=== PATIENT | male | born 1955 | race Caucasian/White ===

== ENCOUNTER 2024-06-18 18:06 | Inpatient (IN) ==
--- OUTSIDE RECORDS SUMMARY | 2024-06-18 18:12 | External Medical Summary | Summary of Care ---
Author Name Unknown Organization [facility] Address [address] [place] [address] Phone [phone] Care Team Providers Care Control Operator Name Role Phone Dennis Piper MD Primary Care Provider [phone] Reason for Visit * Reason Comments NEW PATIENT C/o rash on back, sh oulders, stomach, legs x few months. Has tried hydrocortisone, benadryl itch relief. Uses dial body wash. Uses tide detergent. * Evaluate & Treat - Unlimited Visits (Within 30 days (routine)) - Authorized Specialty Diagnoses / Procedures Referred By Renetta silveira Referred To Contact Dermatology Diagnoses Eczema, unspecified type Dennis Piper MD Phone: tel: fax: Referral ID Status Reason Start Date Expiration Date Visits Requested Visits Authorized [id number] Authorized Specialty Services Required [phone] Encounter Details Date Type Department Care Team (Late st Contact Info) Description 02/23/2024 1:30 PM EST Office Visit Dermatology [address] [address] Antonietta Macias PA-C [address] [place] [address] Rash and nonspecific skin eruption* Allergies Active Allergy Reactions Criticality Noted Date Comments Penicillins 02/03/2021 documented as of this encounter (statuses as of 02/23/2024) Medications Triamcinolone Acetonide 0.1 % External Cream (Aristocort) Apply to trunk and extremities twice daily 454 g 5 Active Cephalexin 500 MG Oral Capsule (Keflex) Take 1 Capsule by mouth in the morning and 1 Capsule before bedtime. 20 Capsule 5 Active Cetirizine HCl 10 MG Oral Tablet (ZyrTEC) Take 1 Tablet by mouth in the morning. For itch. 15 Tablet 5 Active documented as of this encounter (statuses as of 02/23/2024) Active Problems No known active problems documented as of this encounter (statuses as of 02/23/2024) Immunizations Name Administration Dates Next Due Pneumococcal Conjugate Vaccine, 20-valent (Prevn ar20) 10/15/2022 Pneumococcal Polysaccharide PPV23 (Pneumovax) TDAP (age 10 and older)(Boostrix) 02/03/2021 Varicella Zoster Vaccine (Adult) 04/15/2022,10/0 02/2021 documented as of this encounter Social History Tobacco Use Types Packs/Day Years Used Date Smoking Tobacco: Never Smokeless Tobacco: Never PHQ-2 Answer Date Recorded PHQ Adult Total Score 0 10/19/2023 Hunger Vital Sign Answer Date Recorded Within the past 12 months, y ou worried that your food would run out before you got the money to buy more. Never true 10/05/19 24 Within the past 12 months, t he food you bought just didn't last and you didn't have money to get more. Never true 10/05/2023 Childcare Answer Date Recorded Do you feel overwhelmed with taking care of a child, family member or friend? No 10/05/2023 Does your family need help f inding childcare? (Household - for ages 0-17 years) Not on file 10/05/2023 Clothing Answer Date Recorded Have you been unable to get clothing when it was really needed? No 10/05/2023 Is your family able to get c lothes or diapers when needed? (Household - for ages 0-17 years) Not on file 10/05/2023 Personal Safety Answer Date Recorded Do you feel unsafe or have concerns for your saf ety? No 10/05/2023 Do you have concerns for you r family's safety? (Household - for ages 0-17 years) Not on file 10/05/2023 Utilities Answer Date Recorded Do you have trouble paying y our heating, water, or electric bill? No 10/05/2023 Is your family able to pay t he heat, water, or electric bill? (Household - for ages 0-17 years) Not on file 10/05/2023 Does your family have access to good internet? (Household - for ages 0-17 years) Not on file 10/05/2023 Employment Status Answer Date Recorded Are you unemployed or without regular income? No 10/05/2023 Does the household have a [facility] source [facility] income? (Household - for ages 0-17 years) Not on file 10/05/2023 Social Connections Answer Date Recorded How often do you feel lonely or isolated from th ose around you? Never 10/05/2023 Financial Resource Strain Answer Date R ecorded Do you have any trouble payi ng for your medications, or do you think you might in the future? No 10/05/2023 Does your family have troubl e paying for medicine? (Household - for ages 0-17 years) Not on file 10/05/2023 Transportation Needs Answer Date Record ed Do you have trouble getting a ride to medical visits or work? (Adult - for ages 18 years and over) Not on file 10/05/2023 Does your family have a hard time getting a ride to doctors visits? (Household - for ages 0-17 years) Not on file 10/05/2023 Has lack of transportation k ept you from medical appointments, meetings, work, or from getting things needed for daily living? Check all that apply. No 10/05/2023 Do you (or your family) have trouble finding or paying for a ride (transportation)? (Household - for ages 0-17 years) Not on file 10/05/2023 Housing Stability Answer Date Recorded Do you currently live in a s helter or have no steady place to sleep at night? No 10/05/2023 Do you think you are at risk of becoming homeless? (Adult - for ages 18 years and over) Not on file 10/05/2023 Does your family worry about paying for your home or becoming homeless? (Household - for ages 0-17 years) Not on file 0 10/05/2023 Are you homeless or worried that you might be in the future? No 10/05/2023 Are you (or your family) bryan eless or worried that you might be in the future? (Household - for ages 0-17 years) Not on file Food Insecurity Answer Date Recorded Do you need food for this week? No 10/05/2023 Are you able to get enough f ood for your family? (Household - for ages 0-17 years) Not on file 10/05/2023 Does your family need food t his week? (Household - for ages 0-17 years) Not on file 10/05/2023 Do you always have enough fo od for your family? (Household - for ages 0-17 years) Not on file 10/05/2023 Sex and Gender Information Value Date Recorded Sex Assigned at Male 10/05/2023 4:21 PM EDT Legal Sex Male 10:32 AM EST Gender Identity Male 10/05/2023 4:21 PM EDT Sexual Orientation Straight 10/05/2023 4: 21 PM EDT documented as of this encounter Progress Notes * Antonietta Macias PA-C - 02/23/2024 1:16 PM EST Nursing Notes: Kaylin Macias LPN 02/23/24 1334 Signed Patient identified by name and date. Chief Complaint Patient presents with NEW PATIENT C/o rash on back, shoulders, stomach, legs x few months. Has tried hydrocortisone, benadryl itch relief. Uses dial body wash. Uses tide detergent. SUBJECTIVE: HPI: Adria Butler is a 68 year old male seen at the request of PCP for evaluation and treatment ofrash. Rash located on torso and legs x several months. Began on upper back Rash is very itchy. Keeps him up at night. Previous attempted tx includes benadryl itch relief with very minimal and temporary relief. Washes with dial body wash, Tide laundry detergent- no changes in products recently. No new medications. No recent illness. Hx of eczema, per pt. Biopsied approx 10 years ago- looked similar to current rash but not as severe at this episode. REVIEW OF SYSTEMS: See HPI- all other findings negative Constitutional: (-) fever, chills, sweats, weight loss Cardiovascular: (-) lower extremity edema Skin: (-) no rash or new or changing moles or skin lesions No past medical history on file. There is no problem list on file for this patient. SOCIAL HISTORY: Social History Tobacco Use Smoking status: Never Smokeless tobacco: Never Substance Use Topics Alcohol use: Not on file Vaping/E-Cigarette Use Vaping/E-Cigarette Substances Vaping/E-Cigarette Devices MEDICATIONS: No current outpatient medications on file. No current facility-administered medications for this visit. ALLERGIES: Penicillins Industrial Designer Documentation Patient offered systems tester and declined. OBJECTIVE: GEN: Healthy, alert, no distress, appears oriented, pleasant, and cooperative. PSYCH: Appropriate mood and affect, alert SKIN: Detailed exam of scalp, hair, face including lids and lips, ears, neck, chest, back, abdomen,buttocks, bilateral upper extremities and bilateral lower extremities including the nails and digits was completed and are within normal limits with the following exceptions: 1. [place]-shaped erythematous scaly and crusted plaques and papules on upper back, flanks, arms, thighs Excoriations diffusely throughout trunk and upper/lower ext ASSESSMENT/PLAN: 1. Dermatitis, favor nummular dermatitis with secondary staph r/o other Tangential biopsy of the lesion noted above to establish and confirm diagnosis. The procedure, risks, benefits, alternatives and expected outcomes were discussed with the patient and verbal consent was obtained. Patient identified, procedure verified, site identified and verified. Confirmed immediately prior to procedure. Area prepped with alcohol and anesthetized with 0.5% lidocaine with epinephrine at 1:200,000 concentration. Biopsy of lesion performed. 20% AlCl and bandaging applied. Specimen sent to pathology. Patient instructed in routine post-op care. - prescribed triamcinolone 0.1% cream 1lb jar BID to trunk and ext, zyrtec 10mg daily in AM, cephalexin 500mg BID x 10 days - discussed gentle skin care to include but not limited to lukewarm showers, moisturizing with thick cream immediately after showering, Dove soap Patient with today. Follow-up: PRN Photos taken, patient consented to photos. Applicable photos (if any) and chart reviewed by Dr. Reji Cronin The patient was encouraged to contact me with any further questions or concerns. Antonietta Macias PA-C 02/23/2024 1:17 PM documented in this encounter Nursing Notes * Kaylin Macias LPN - 02/23/2024 1:34 PM EST Patient identified by name and date. Chief Complaint Patient presents with NEW PATIENT C/o rash on back, shoulders, stomach, legs x few months. Has tried hydrocortisone, benadryl itch relief. Uses dial body wash. Uses tide detergent. documented in this encounter Plan of Treatment Upcoming Encounters Date Type Department Care Team (Late st Contact Info) Description 10/19/2024 8:20 AM EDT Office Visit [facility] [address] [place] [address] Dennis Piper MD [address] [place] [address] Pending Results Name Type Priority Associated Diagnoses Date /Time SURGICAL PATHOLOGY Pathology Routine Rash and nonspecific skin eruption 02/23/2024 1:56 PM EST Scheduled Procedures Name Priority Associated Diagnoses Date/Ti in COLONOSCOPY FLEXIBLE PROXIMAL DIAGNOSTIC Recall History of colon polyps Health Maintenance Due Date Last Done Comments Cologuard 1998 Fecal Occult Blood Test 1998 Sigmoidoscopy 1998 Adult Wellness Visit 08/03/2019 Zoster Vaccines (2 of 3) 06/10/2022 023, 11/15/2021 COVID-19 Vaccine ( - 2023-2 5 season) 2023 02/11/2023 Influenza Vaccine (FLU shot) (#1) 2023 Depression Screening 10/18/2024 10/19/2023 Lipid Panel 10/10/2028 10/11/2023, 10/05/2022, 03/06/2021 DTap/Tdap Vaccines (2 - Td o r Tdap) 02/03/2031 02/03/2021 Colonoscopy 06/04/2031 06/03/2021, 06/03/2021 Colorectal Cancer Screening 06/04/2031 Pneumococcal Vaccine: 50+ Years Completed 10/15/2022, 03/06/2021 HPV (Gardasil) Vaccine Aged Out No lo nger eligible based on patient's age to complete this topic Hepatitis B Vaccine Aged Out No longe r eligible based on patient's age to complete this topic Hepatitis C Screening Discontinued MENINGOCOCCAL (MENACTRA/MENVEO) Aged Out No longer eligible based on patient's age to complete this topic documented as of this encounter Medical Devices Not on filedocumented as of this encounter Procedures Procedure Name Priority Date/Time Associated Diagnosis Comments DERM EXAM - DERM (IMAGES ONLY, NO REPORT) Routine 02/23/2024 1:55 PM EST Rash and nonspecific skin eruption documented in this encounter Results * DERM EXAM - DERM (IMAGES ONLY, NO REPORT) (02/23/2024 1:55 PM EST) Narrative Scheduling, Silent - 02/23/2024 1:55 PM EST This is an imaging study not interpreted or resulted by a [facility] or [facility] contracted radiologist. Antonietta Macias PA-C RADIOLOGY ([facility]) Final Result documented in this encounter Visit Diagnoses Diagnosis Rash and nonspecific skin eruption- Primary Rash and other nonspecific skin eruption documented in this encounter Care Teams Control Operator Relationship Specialty Start Date End Date Dennis Piper MD PCP - General Family Medicine 02/03/21 documented as of this encounter
--- OUTSIDE RECORDS SUMMARY | 2024-06-18 18:12 | External Medical Summary | Summary of Care ---
Author Name Unknown Organization [facility] Address [address] [place] [address] Phone [phone] Care Team Providers Care Audio Visual Engineer Name Role Phone Dennis Piper MD Primary Care Provider [phone] Reason for Visit * Reason Onset Date Comments Test Results 02/29/2024 Encounter Details Date Type Department Care Team (Late st Contact Info) Description 02/29/2024 Telephone [address] [address] Services, Scheduling [address] [place] [address] Test Results Allergies Active Allergy Reactions Criticality Noted Date Comments Penicillins 02/03/2021 documented as of this encounter (statuses as of 03/09/2024) Medications Triamcinolone Acetonide 0.1 % External Cream [...] as of this encounter (statuses as of 03/09/2024) Active Problems No known active problems documented as of this encounter (statuses as of 03/09/2024) Immunizations Name Administration Dates Next Due Pneumococcal Conjugate Vaccine, 20-valent (Prevn ar20) 10/15/2022 Pneumococcal Polysaccharide PPV23 (Pneumovax) TDAP (age 10 and older)(Boostrix) 02/03/2021 Varicella Zoster Vaccine (Adult) 04/15/2022,1002/2021 documented as of this encounter Social History [...] No 10/05/2023 Does the household have a re gular source of income? (Household - for ages [...] PM EDT documented as of this encounter Miscellaneous Notes * Telephone Encounter - Aster Pike OSA - 02/29/2024 11:12 AM EST Pt returning your call, we tried the number you left twas not able to reach anyone. Please assist. Best number to call pt back is [phone] Robert aster documented in this encounter Plan of Treatment Upcoming Encounters Date Type Department Care Team (Late st Contact Info) Description 10/19/2024 8:20 AM EDT Office Visit [facility] Reilly [address] [phone] Dennis Piper MD [address] [address] Scheduled Procedures Name Priority Associated Diagnoses Date/Ti me COLONOSCOPY FLEXIBLE PROXIMAL DIAGNOSTIC Recall History of colon polyps Health Maintenance Due Date Last Done Comments Cologuard 1998 Fecal Occult Blood Test 1998 Sigmoidoscopy 1998 Adult Wellness Visit 08/03/2019 Zoster Vaccines (2 of 3) 06/10/2022 023, 11/15/2021 COVID-19 Vaccine (2 - 2023-2 5 season) 2023 02/11/2023 Influenza [...] Not on filedocumented as of this encounter Care Teams Audio Visual Engineer Relationship Specialty Start Date End Date Dennis Piepr MD PCP - General Family Medicine 02/03/21 documented as of this encounter
--- OUTSIDE RECORDS SUMMARY | 2024-06-18 18:12 | External Medical Summary | Summary of Care ---
Author Name Unknown Organization [facility] Address [address] [place] [address] Phone [phone] Care Team Providers Care Automatic Data Processing Planner Name Role Phone Dennis Piper MD Primary Care Provider [phone] Reason for Visit * Reason Comments NEW [...] Date Expiration Date Visits Requested Visits Authorized [id number] Authorized Specialty Services Required 4 [phone] Encounter Details Date Type Department Care Team (Late st Contact Info) Description 02/23/2024 1:30 PM EST Office Visit Dermatology [address] [address] Antonietta Macias PA-C [address] [place] [address] Rash and nonspecific skin eruption* Allergies Active [...] No 10/05/2023 Does the household have a [facility] source of income? (Household - for ages [...] as of this encounter Progress Notes * Reji Cronin MD - 02/23/2024 6:43 PM EST I have reviewed the charting notes and orders and associated images and agree with the assessment and plan of Antonietta Salgado PA-C . Reji Cronin MD., Dermatology [facility] [address] [place] [address] * Antonietta Macias PA-C - 02/23/2024 1:16 [...] facility-administered medications for this visit. ALLERGIES: Penicillins Newspaper Correspondent Documentation Patient offered computer system validation specialist and declined. OBJECTIVE: GEN: Healthy, alert, no distress, appears oriented, pleasant, and cooperative. PSYCH: Appropriate mood and affect, alert SKIN: Detailed exam of scalp, hair, face including lids and lips, ears, neck, chest, back, abdomen,buttocks, bilateral upper extremities and bilateral lower extremities including the nails and digits was completed and are within normal limits with the following exceptions: 1. [place]-shaped erythematous scaly and crusted plaques and papules [...] Description 10/19/2024 8:20 AM EDT [facility] [address] [phone] Dennis Piper MD [address] [address] Pending Results Name Type Priority Associated Diagnoses [...] interpreted or resulted by a [facility] or [facility] contracted radiologist. Antonietta Macias PA-C RADIOLOGY ([facility]) Final Result documented in this encounter Visit Diagnoses Diagnosis Rash and nonspecific skin eruption- Primary Rash and other nonspecific skin eruption documented in this encounter Care Teams Automatic Data Processing Planner Relationship Specialty Start Date End Date Dennis Piper MD PCP - General Family Medicine 02/03/21 documented as of this encounter
--- OUTSIDE RECORDS SUMMARY | 2024-06-18 18:12 | External Medical Summary | Summary of Care ---
Author Name Unknown Organization [facility] Address [address] [place] [address] Phone [phone] Care Team Providers Care Cereal Supervisor Name Role Phone Dennis Piper MD Primary Care Provider Reason for Visit * Reason Comments NEW [...] Date Expiration Date Visits Requested Visits Authorized [id number] Authorized Specialty Services Required 4 [phone] Encounter Details Date Type Department Care Team (Late st Contact Info) Description 02/23/2024 1:30 PM EST Office Visit Dermatology [address] [address] Antonietta Macias PA-C [address] [place] [address] Rash and nonspecific skin eruption* Allergies Active Allergy Reactions Criticality Noted Date Comments Penicillins 02/03/2021 documented as of this encounter (statuses as of 02/29/2024) Medications Triamcinolone Acetonide 0.1 % External Cream [...] as of this encounter (statuses as of 02/29/2024) Active Problems No known active problems documented as of this encounter (statuses as of 02/29/2024) Immunizations Name Administration Dates Next Due Pneumococcal [...] No 10/05/2023 Does the household have a [facility] source of income? (Household - for ages [...] Salgado PA-C . Reji Cronin MD., Dermatology [facility] [address] [place] [address] * Antonietta Macias PA-C - 02/23/2024 1:16 [...] facility-administered medications for this visit. ALLERGIES: Penicillins Renal Nurse Documentation Patient offered furnace mechanic helper and declined. OBJECTIVE: GEN: Healthy, alert, no distress, appears oriented, pleasant, and cooperative. PSYCH: Appropriate mood and affect, alert SKIN: Detailed exam of scalp, hair, face including lids and lips, ears, neck, chest, back, abdomen,buttocks, bilateral upper extremities and bilateral lower extremities including the nails and digits was completed and are within normal limits with the following exceptions: 1. Turton-shaped erythematous scaly and crusted plaques and papules [...] Uses tide detergent. documented in this encounter Miscellaneous Notes * Result Encounter Note - Antonietta Macias PA-C - 02/29/2024 8:25 AM EST A. Skin, right posterior shoulder, shave: Spongiotic dermatitis with eosinophils. (See comment) Comment: GMS and Gram stains are negative for fungal and bacterial elements, respectively. The histologic findings are not entirely specific, but may represent a contact dermatitis, reaction to drug/medicine/other ingested substance, atopic/intrinsic dermatitis, or an ID reaction. A few eosinophilsare noted along the dermal-epidermal junction; if there is clinical concern for an immunobullous process, an additional biopsy submitted for direct immunofluorescence studies may be warranted. Left message for pt to return call to discuss results and f/u with treatment documented in this encounter Plan of Treatment Upcoming Encounters Date Type Department Care Team (Late st Contact Info) Description 10/19/2024 8:20 AM EDT Office Visit [facility] Hubert Reilly [address] [address] Dennis Piper MD [address] [phone] Scheduled Procedures Name Priority Associated Diagnoses Date/Ti [...] Procedure Name Priority Date/Time Associated Diagnosis Comments SURGICAL PATHOLOGY Routine 02/23/2024 1: 56 PM EST Rash and nonspecific skin eruption DERM EXAM - DERM (IMAGES ONLY, NO REPORT) Routine 02/23/2024 1:55 PM EST Rash and nonspecific skin eruption documented in this encounter Results * SURGICAL PATHOLOGY (02/23/2024 1:56 PM EST) Final Diagnosis A. Skin, right posterior shoulder, shave: Spongiotic dermatitis with eosinophils. (See comment) Comment: GMS and Gram stains are negative for fungal and bacterial elements, respectively. The histologic findings are not entirely specific, but may represent a contact dermatitis, reaction to drug/medicine/other ingested substance, atopic/intrinsic dermatitis, or an ID reaction. A few eosinophils are noted along the dermal-epidermal junction; if there is clinical concern for an immunobullous process, an additional biopsy submitted for direct immunofluorescence studies may be warranted. 02/28/2024 2:35 PM EST LABORATORY C Clinical History See Order Comments 02/28/2024 2:35 PM EST LABORATORY C Order Comments A. 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 Skin. Received in formalin with a container labeled with "Adria Butler", "[id number]", "1955" and " right posterior shoulder". Received is a skin shave measuring 1.1 x 1.0 cm. The skin surface is mcginnis-pink to yellow variegated with a rough slightly scaly appearance throughout. Underlying tissue is inked blue. The specimen serially sectioned into 5 and entirely submitted with 2 pieces each in cassettes A1 and A2 in 1 piece in cassettes A3. Gross By: TITI 02/28/2024 2:35 PM EST LABORATORY C Microscopic Description Sections show a shave biopsy of skin with marked epidermal spongiosis, overlying serum crust with collections of neutrophils, and focal erosion. Within the dermis, there is a superficial perivascular lymphocytic infiltrate with numerous admixed eosinophils. GMS and Gram stains are negative for fungal and bacterial organisms, respectively. 02/28/2024 2:35 PM EST LABORATORY [facility] Sign Out Location Pathologist sign out performed at [facility] ([facility] [place] [address]. 02/28/2024 2:35 PM EST LABORATORY [facility] Photographic images and diagrams represent mackenzie findings in this case; they are not intended to replace a complete review of the final diagnostic report. The following statement applies to Flow Cytometry, Histology, In situ Hybridization Assays and Molecular Genetics. This test was developed and performed at [facility] and its performance characteristics determined by [facility] [employer]. It has not been cleared or approved by the U.S. Food and Drug Administration. The FDA has determined that such clearance or approval is not necessary. This test is used for clinical purposes. It should not be regarded as investigational or for research. Special stains, including histochemical stains, and studies using immunologic and MIRELA methodology (where applicable) are performed with appropriate positive and negative control reactions. 02/28/2024 2:35 PM EST LABORATORY [facility] Tissue Skin structure / Unknown 02/23/2024 1:56 PM EST 02/23/2024 1:56 PM EST Comment:A. Cowan crusted and scaly plaques on upper back, upper ext, favor nummular eczema with secondary bacterial infection r/o other Antonietta Macias PA-C LAB PATHOLOGY ORDER DENIZ Final Result LABORATORY [facility] [address] [place] [address] * DERM EXAM - DERM (IMAGES ONLY, NO REPORT) (02/23/2024 1:55 PM EST) Narrative Scheduling, Silent - 02/23/2024 1:55 PM EST This is an imaging study not interpreted or resulted [facility] a [facility] radiologist. Antonietta Macias PA-C RADIOLOGY (RAD [facility]) Final Result documented in this encounter Visit Diagnoses Diagnosis Rash and nonspecific skin eruption- Primary Rash and other nonspecific skin eruption documented in this encounter Care Teams Cereal Supervisor Relationship Specialty Start Date End Date Dennis Piper MD PCP - General Family Medicine 02/03/21 documented as of this encounter
--- OUTSIDE RECORDS SUMMARY | 2024-06-18 18:12 | External Medical Summary | Summary of Care ---
Author Name Unknown Organization [facility] Address [address] [place] [address] Phone [phone] Care Team Providers Care Cold Rolling Coordinator Name Role Phone Dennis Piper MD Primary Care Provider [phone] Reason for Referral * Evaluate & Treat - Unlimited Visits (Within 30 days (routine)) - Authorized Specialty Diagnoses / Procedures Referred By Renetta silveira Referred To Contact Dermatology Diagnoses Eczema, unspecified type Dennis Piper MD [address] [place] [address] Phone: tel: fax: Referral ID Status Reason Start Date Expiration Date Visits Requested Visits Authorized [id number] Authorized Specialty Services Required 4 [phone] Question Answer Referral Priority Within 30 days (routine) Where should this appointment be scheduled? [facility] Are you referring the patient for Mohs Surgery and have a current positive skin cancer biopsy result? No What is the reason for the patient referral? Rash/Skin Check/Eval of Lesion or Mole Comments Patient has a similar rash that he had 10 years ago and thinks it's eczema or a for of it. Reason for Visit * Reason Onset Date Comments Referral 12/23/2023 Encounter Details Date Type Department Care Team ([facility] st Contact Info) Description 12/23/2023 Telephone [facility] [address] [facility] [place] [address] Dennis Piper MD [address] [place] [facility] [place] [address] Referral Allergies Active Allergy Reactions Criticality Noted Date Comments Penicillins 02/03/2021 documented as of this encounter (statuses as of 01/05/2024) Medications No known medicationsdocumented as of this encounter (statuses as of 01/05/2024) Immunizations Name Administration Dates Next Due Pneumococcal Conjugate Vaccine, 20-valent (Prevn ar20) 10/15/2022 Pneumococcal Polysaccharide PPV23 (Pneumovax) TDAP (age 10 and older)(Boostrix) 02/03/2021 Varicella Zoster Vaccine (Adult) 04/15/2022,100 02/2021 documented as of this encounter Social [...] encounter Miscellaneous Notes * Telephone Encounter - Mary Rehman LPN - 01/05/2024 11:37 AM EST Is scheduled with derm 05/11/24 Please see if pt would like to be seen sooner in clinic * Telephone Encounter - Dennis Piper MD - 01/03/2024 5:44 PM EST Notify Pt: I did complete referral but likely to take many months to get a derm apt. I would suggest he be seen in this office to evaluate and treat. * Telephone Encounter - Maggy Dukes OSA - 12/23/2023 2:40 PM EST Has the patient been seen for this problem? (Y/N)?: N If No, an appt needs to be scheduled before a referral will be placed (exception: proceed with referral request if referral request is for a yearly routine appointment with speciality) Patient Name: Adria Butler Patient Primary care provider: Dennis Piper MD Does this need to be an insurance referral (Y/N)?: Y If Yes, does the insurance referral need to be placed into the [employer] system? Name of preferred specialist: Dr. Whitt, or another in [place] Type of specialist: Clinical Training Specialist [facility] of specialist: [facility] Phone #: [phone] Specialist's Fax #: n/a Reason for visit: Patient has a similar rash that he had 10 years ago and thinks it's eczema or a for of it. Date of visit: n/a documented in this encounter Plan of Treatment Upcoming Encounters Date Type Department Care Team (Late st Contact Info) Description 05/11/2024 2:00 PM EDT Office Visit Dermatology, [address] [address] Alice Colmenares PA-Opal [address] [place] [address] [address] [address] 10/19/2024 8:20 AM EDT Office Visit Family [address] [address] Dennis Piper MD [address] [place] [address] Scheduled Procedures Name Priority Associated Diagnoses Date/Ti me COLONOSCOPY FLEXIBLE PROXIMAL DIAGNOSTIC Recall History of colon polyps Scheduled Referrals Name Type Priority Associated Diagnoses Orde r Schedule DERMATOLOGY REFERRAL OP Referral Within 30 days (routine) Eczema, unspecified type Ordered: 01/03/2024 Health Maintenance Due Date Last Done Comments [...] 06/03/2021 Colorectal Cancer Screening 06/04/2031 Pneumococcal Vaccine: 65+ Years Completed 10/15/2022, 03/06/2021 HPV (Gardasil) Vaccine [...] Not on filedocumented as of this encounter Visit Diagnoses Diagnosis Eczema, unspecified type- Primary documented in this encounter Care Teams Cold Rolling Coordinator Relationship Specialty Start Date End Date Dennis Piper MD [address] [place] [address] PCP - General Family Medicine 02/03/21 documented as of this encounter
--- OUTSIDE RECORDS SUMMARY | 2024-06-18 18:12 | External Medical Summary | Summary of Care ---
Author Name Unknown Organization [facility] Address [address] [place] [address] Phone [phone] Care Team Providers Care Filter Washer Name Role Phone Dennis Piper MD Primary Care Provider [phone] Encounter Details Date Type Department Care Team (Latest Contact Info) Description 02/23/2024 1:55 PM EST - 02/23/2024 11:59 PM EST Hospital Encounter Radiology Film File [address] [place] [address] Arrived Discharge Disposition: Home - Self Care Allergies Active Allergy Reactions Criticality Noted Date Comments Penicillins 02/03/2021 documented as of this encounter (statuses as of 02/24/2024) Medications Triamcinolone Acetonide 0.1 % External Cream [...] as of this encounter (statuses as of 02/24/2024) Active Problems No known active problems documented as of this encounter (statuses as of 02/24/2024) Immunizations Name Administration Dates Next Due Pneumococcal [...] PM EDT documented as of this encounter Plan of Treatment Upcoming Encounters Date Type Department Care Team (Late st Contact Info) Description 10/19/2024 8:20 AM EDT Office Visit [facility] Hubert Reilly [address] [address] Dennis Piper MD [address] [address] Scheduled Procedures Name Priority Associated Diagnoses Date/Ti [...] interpreted or resulted by a [facility] or [facility] contracted radiologist. us Antonietta Macias PA-C RADIOLOGY (RAD [facility]) Final Result documented in this encounter Care Teams Filter Washer Relationship Specialty Start Date End Date Dennis Piper MD PCP - General Family Medicine 02/03/21 documented as of this encounter
--- OUTSIDE RECORDS SUMMARY | 2024-06-18 18:12 | External Medical Summary | Summary of Care ---
Author Name Unknown Organization [facility] Address [address] [place] [address] Phone [phone] Care Team Providers Care Vise Hand Name Role Phone Dennis Piper MD Primary Care Provider [phone] Reason for Referral * Evaluate & Treat - Unlimited Visits (Within 30 days (routine)) - Authorized Specialty Diagnoses / Procedures Referred By Renetta silveira Referred To Contact Dermatology Diagnoses Eczema, unspecified type Dennis Piper MD [address] [place] [address] Phone: tel: fax: Referral ID Status Reason Start Date Expiration Date Visits Requested Visits Authorized [id number] Authorized Specialty Services Required 4 [phone] [...] Encounter Details Date Type Department Care Team ([facility] st Contact Info) Description 12/23/2023 Telephone [facility] [address] [place] [facility] [place] [address] Dennis Piper MD [address] [place] [address] Referral Allergies Active Allergy Reactions Criticality Noted Date Comments Penicillins 02/03/2021 documented as of this encounter (statuses as of 01/03/2024) Medications No known medicationsdocumented as of this encounter (statuses as of 01/03/2024) Immunizations Name Administration Dates Next Due Pneumococcal [...] encounter Miscellaneous Notes * Telephone Encounter - Dennis Piper MD [...] referral need to be placed into the [employer] system? Name of preferred specialist: Dr. Whitt, or another in [place] Type of specialist: Cinetechnician [facility] Phone #: [phone] Specialist's Fax #: n/a Reason for visit: Patient has a similar rash that he had 10 years ago and thinks it's eczema or a for of it. Date of visit: n/a documented in this encounter Plan of Treatment Upcoming Encounters Date Type Department Care Team (Late st Contact Info) Description 10/19/2024 8:20 AM EDT Office Visit [address] [address] Dennis Piper MD [address] [place] [address] Scheduled Procedures Name Priority Associated Diagnoses Date/Ti [...] Primary documented in this encounter Care Teams Vise Hand Relationship Specialty Start Date End Date Dennis Piper MD [address] [place] [address] PCP - General Family Medicine 02/03/21 documented as of this encounter
--- NOTE | 2024-06-18 18:29 | Emergency Department Note ---
ED DC CONDITION Conditon at Discharge Condition at Discharge: Critical Impression & Plan Aphasia, Alcohol dependence, Stroke-like symptoms ED Provider Note NAME: JIAN RIVAS AGE: 68 SEX: M : 1955 ARRIVES VIA: Walk-In INFORMANT: Patient ED PROVIDER(S): Gregory Benton MD CHIEF COMPLAINT: Stroke-like symptoms PLAN: Disposition: Admit MEDICAL DECISION MAKING: The patient is a 68-year-old gentleman with a past medical history of daily alcohol use who presents to the emergency department via walk-in and accompanied by his for evaluation of acute onset of headache and trouble speaking and following commands that occurred around 1730 today when the patient was watching TV. Patient's reports that she was out of town over the weekend, but has no indication that the patient had more alcohol than usual or abstain for any reason where he may be in withdrawal. She also adds that he has a history of falling but he did not mention any falls to her and did not complain of any pain until he complained of a headache this evening. The patient is not on anticoagulation nor does he take a daily aspirin. On presentation to triage the patient is no acute distress, afebrile blood pressure in the 190s/100s and vital signs otherwise stable. Stroke alert was activated given onset of stroke symptoms and taken directly to CT. Patient's case was discussed with Dr. Tinoco, [facility] [place]y. On my examination following CT imaging, the patient exhibits expressive aphasia with some dysarthria but also some difficulty following commands and exhibits poor attention with some restlessness. There is no focal extremity weakness but some limb ataxia bilaterally NIHSS 7. EKG without overt acute ischemia. CXR negative for acute cardiopulmonary process per my personal preliminary review/interpretation. WBC, H/H and platelets with normal limits. Chemistry without metabolic acidosis. Electrolytes LFTs unremarkable. Total bili 1.2, nonspecific LFTs otherwise normal. TSH within normal limits. UA without evidence of infection. Medical alcohol was undetectable and so given report of regular heavy alcohol use a component of alcohol withdrawal is considered. CT of the head and CTA of the head and neck were completed CT of the head and did not show evidence of ICH, ischemia or severe narrowing occlusion of large vessels. Appreciate telestroke consultation recommendations following evaluation via telestroke monitor. Given the patient's acute symptoms within the TNK window and inability to completely exclude stroke patient's was consented for TNK and she agreed. However, CBC had yet to result at the time of this decision and given the patient's history of regular heavy alcohol use we agreed to await results to ensure appropriate platelet count. The patient's blood pressure continued to be elevated despite IV fluid hydration, IV APAP, thiamine as well as IV Ativan. Patient was treated with labetalol x 2 and subsequently blood pressure was within range to initiate TNK. Additional management of blood pressure administered with labetalol and initiation of nicardipine drip. Case was discussed with Dr. Ho, [facility] who will evaluate the patient for admission. Case also reviewed with Elizabeth Cox, PAC with Dr. Mcintosh, ICU customer development representative. Further management per ICU and hospitalist service. Triage Nursing notes reviewed and agree them. Prior/external medical records reviewed Vital Signs: reviewed Differential diagnosis: Infection, dehydration, metabolic abnormality, hypo/hyperglycemia, electrolyte disturbance, anemia, hypoxia, cardiac sources, intracerebral event, toxicologic, neurologic, as well as other pathologies. ER treatment provided: See below. Diagnostics interpreted by me: ECG: Normal sinus rhythm, 76 bpm, no ectopy, right bundle branch block, no overt ST elevation or depression, QTc 460, QRS 120. Cardiac Monitoring: An order for continuous cardiac monitoring was placed and demonstrated Normal sinus rhythm, 76 bpm, no ectopy. Laboratory studies: See below Imaging studies: See below Consultation(s): Dr. Tinoco, [facility] [place]y. Dr. Ho, [facility]. Elizabeth Cox, PAC with Dr. Mcintosh, ICU customer development representative. HPI: Per MDM. ROS: See above HPI for pertinent positives & negatives. A total of 10 systems reviewed and were otherwise negative. VITALS:See Below PHYSICAL EXAMINATION: GENERAL: Awake, alert, restless-appearing, in no distress HENT: Normocephalic, atraumatic. Oropharynx with dry mucous membranes and otherwise unremarkable. EYES: Normal conjunctiva. Sclera non-icteric. EOMI. PEARRL. No overt nystamgus. NECK: Supple. No nuchal rigidity. FROM. No JVD. RESPIRATORY: Clear to auscultation. CARDIAC: Regular rate, normal rhythm. Extremities warm and well perfused. Pulses equal. ABDOMEN: Soft, non-distended. No tenderness to palpation. No rebound or guarding. No masses. MUSCULOSKELETAL: Chest examination reveals no tenderness. The back is symmetrical on inspection without obvious abnormality. There is no CVA tenderness to palpation. No joint edema. LOWER EXTREMITIES: Calves are equal size bilaterally and non-tender. No edema. No discoloration. NEURO: Expressive aphasia with some dysarthria but also some difficulty following commands and exhibits poor attention with some restlessness. There is no focal extremity weakness but some limb ataxia bilaterally NIHSS 7. SKIN: No rash or jaundice noted. ED COURSE: Discussion occurred with patient/family: We discussed the risks of IV thrombolytic therapy including a 5-7% risk of possible significant hemorrhage which can be fatal as well as about a 1% risk of angioedema. We also noted that IV thrombolytic therapy provides about a 30-40% probability of improved functional status and lower disability at 90 days than if not treated with thrombolytic. After discussion regarding risks and benefits as well as the inclusion and exclusion criteria, the patient's then consented for the patient to receive IV thrombolytic therapy. Critical Care: I have personally spent greater than 75 minutes of critical care time in the direct management of this patient. This includes bedside care, interpretation of diagnostic studies, and testing, discussion with consultants, patient, and family members, and other required patient management activities. This 75 minutes is in excess of all separately billable procedures. Gregory Benton MD Thrombolytics MDM Did the patient receive IV thrombolytics?: Yes Was there any delay in administration?: Yes Reason(s) for Delay: TNK administration awaited results of CBC to ensure appropriate platelet count in the setting of alcoholism and no prior lab results available for comparison. Past Med/Surg History Problem List (Updated 06/19/24 @ 00:14 by Gregory Benton MD) Stroke-like symptoms (Acute) Aphasia (Acute) Alcohol dependence (Acute) Ischemic stroke Social History Smoking Status: Unknown if ever smoked Hx Alcohol Use: Yes Alcohol type: hard liquor Hx Substance Use: No Preferred Language: Mohawk Communication Ability: Effective Cloth Mender Required: No Beliefs That Will Affect Care: None Current Living Situation: Spouse Other Information That Helps Us Care for You: No Feels Safe at Home: Yes Safety Concerns: Feels Safe At This Time Assistive Devices: Glasses Allergies Allergies Allergy/AdvReac Type Severity Reaction Status Date / Time Penicillins Allergy Unknown Verified 06/18/24 19:39 Home Meds Home Medications Medication Instructions Recorded Confirmed cetirizine 10 mg tablet 10 mg PO DAILY PRN Itching 06/18/24 06/18/24 triamcinolone acetonide 0.1 % 1 applic topical BID PRN Rash 06/18/24 06/18/24 topical cream Results & Data (ED) Vital Signs Vital Signs - 24 hr 06/18/24 18:12 06/18/24 18:35 06/18/24 18:36 Temperature 36.6 C Temperature Source Temporal Artery Scan Pulse Rate 74 85 Pulse Rate [Apical] Pulse Rate from SpO2 Sensor Respiratory Rate 18 Respiratory Effort / Characteristics Respiratory Depth Normal Respiratory Pattern Blood Pressure 194/100 H 213/119 H Blood Pressure [Right Arm] Blood Pressure Mean 131 159 Blood Pressure Mean [Right Arm] Pulse Oximetry 97 Oxygen Delivery Method Room Air Sepsis Recent Fever Within 48 Hours No Sepsis New/Unexplained Change in Mental Status No Sepsis Action Taken by Nursing No Action Required 06/18/24 18:55 06/18/24 18:55 06/18/24 19:00 Temperature Temperature Source Pulse Rate 76 Pulse Rate [Apical] Pulse Rate from SpO2 Sensor Respiratory Rate Respiratory Effort / Characteristics Respiratory Depth Respiratory Pattern Blood Pressure 195/115 H 195/115 H 194/113 H Blood Pressure [Right Arm] Blood Pressure Mean 130 140 Blood Pressure Mean [Right Arm] Pulse Oximetry Oxygen Delivery Method Sepsis Recent Fever Within 48 Hours Sepsis New/Unexplained Change in Mental Status Sepsis Action Taken by Nursing 06/18/24 19:05 06/18/24 19:06 06/18/24 19:10 Temperature Temperature Source Pulse Rate 83 Pulse Rate [Apical] Pulse Rate from SpO2 Sensor 82 Respiratory Rate 15 Respiratory Effort / Characteristics Respiratory Depth Respiratory Pattern Blood Pressure 169/114 H 185/124 H Blood Pressure [Right Arm] Blood Pressure Mean 119 155 Blood Pressure Mean [Right Arm] Pulse Oximetry 100 Oxygen Delivery Method Room Air Sepsis Recent Fever Within 48 Hours Sepsis New/Unexplained Change in Mental Status Sepsis Action Taken by Nursing 06/18/24 19:10 06/18/24 19:10 06/18/24 19:12 Temperature Temperature Source Pulse Rate 83 Pulse Rate [Apical] Pulse Rate from SpO2 Sensor 84 Respiratory Rate 23 Respiratory Effort / Characteristics Respiratory Depth Respiratory Pattern Blood Pressure Blood Pressure [Right Arm] Blood Pressure Mean Blood Pressure Mean [Right Arm] Pulse Oximetry 100 100 97 Oxygen Delivery Method Room Air Room Air Room Air Sepsis Recent Fever Within 48 Hours Sepsis New/Unexplained Change in Mental Status Sepsis Action Taken by Nursing 06/18/24 19:15 06/18/24 19:17 06/18/24 19:17 Temperature Temperature Source Pulse Rate 87 87 Pulse Rate [Apical] Pulse Rate from SpO2 Sensor 87 Respiratory Rate 18 20 Respiratory Effort / Characteristics Respiratory Depth Respiratory Pattern Blood Pressure 182/96 H 182/96 H Blood Pressure [Right Arm] Blood Pressure Mean 117 117 Blood Pressure Mean [Right Arm] Pulse Oximetry 92 93 Oxygen Delivery Method Room Air Room Air Sepsis Recent Fever Within 48 Hours Sepsis New/Unexplained Change in Mental Status Sepsis Action Taken by Nursing 06/18/24 19:20 06/18/24 19:26 06/18/24 19:28 Temperature Temperature Source Pulse Rate 84 85 Pulse Rate [Apical] Pulse Rate from SpO2 Sensor Respiratory Rate 18 Respiratory Effort / Characteristics Respiratory Depth Respiratory Pattern Blood Pressure 170/91 H 175/86 H 175/86 H Blood Pressure [Right Arm] Blood Pressure Mean 134 115 Blood Pressure Mean [Right Arm] Pulse Oximetry 98 Oxygen Delivery Method Room Air Sepsis Recent Fever Within 48 Hours Sepsis New/Unexplained Change in Mental Status Sepsis Action Taken by Nursing 06/18/24 19:36 06/18/24 19:40 06/18/24 19:41 Temperature Temperature Source Pulse Rate 80 83 78 Pulse Rate [Apical] Pulse Rate from SpO2 Sensor Respiratory Rate 16 14 Respiratory Effort / Characteristics Respiratory Depth Respiratory Pattern Blood Pressure 176/119 H 172/110 H 172/110 H Blood Pressure [Right Arm] Blood Pressure Mean 152 119 Blood Pressure Mean [Right Arm] Pulse Oximetry 95 93 Oxygen Delivery Method Room Air Room Air Sepsis Recent Fever Within 48 Hours Sepsis New/Unexplained Change in Mental Status Sepsis Action Taken by Nursing 06/18/24 19:45 06/18/24 19:50 06/18/24 19:56 Temperature Temperature Source Pulse Rate 78 79 Pulse Rate [Apical] Pulse Rate from SpO2 Sensor Respiratory Rate 12 Respiratory Effort / Characteristics Respiratory Depth Respiratory Pattern Blood Pressure 164/96 H 152/93 H 181/90 H Blood Pressure [Right Arm] Blood Pressure Mean 117 109 Blood Pressure Mean [Right Arm] Pulse Oximetry 95 Oxygen Delivery Method Room Air Sepsis Recent Fever Within 48 Hours Sepsis New/Unexplained Change in Mental Status Sepsis Action Taken by Nursing 06/18/24 20:00 06/18/24 20:08 06/18/24 20:23 Temperature 36.8 C 36.8 C Temperature Source Oral Oral Pulse Rate 77 Pulse Rate [Apical] 75 74 Pulse Rate from SpO2 Sensor 79 Respiratory Rate 20 16 18 Respiratory Effort / Characteristics Non-Labored Spontaneous Non-Labored Spontaneous Respiratory Depth Normal Normal Respiratory Pattern Regular Regular Blood Pressure 114/77 Blood Pressure [Right Arm] 153/58 H 166/108 H Blood Pressure Mean 89 Blood Pressure Mean [Right Arm] 89 127 Pulse Oximetry 93 94 96 Oxygen Delivery Method Room Air Room Air Room Air Sepsis Recent Fever Within 48 Hours Sepsis New/Unexplained Change in Mental Status Sepsis Action Taken by Nursing 06/18/24 20:31 06/18/24 20:38 06/18/24 20:45 Temperature 36.8 C Temperature Source Oral Pulse Rate 73 75 Pulse Rate [Apical] 71 Pulse Rate from SpO2 Sensor Respiratory Rate 22 Respiratory Effort / Characteristics Non-Labored Spontaneous Respiratory Depth Normal Respiratory Pattern Regular Blood Pressure 166/108 H 169/92 H Blood Pressure [Right Arm] 162/89 H Blood Pressure Mean Blood Pressure Mean [Right Arm] 113 Pulse Oximetry 93 Oxygen Delivery Method Room Air Sepsis Recent Fever Within 48 Hours Sepsis New/Unexplained Change in Mental Status Sepsis Action Taken by Nursing Laboratory Data Attestation: I reviewed the patient's lab results. 06/18/24 19:07 06/18/24 19:07 Lab Results 06/18/24 06/18/24 06/18/24 Range/Units 19:05 19:07 19:08 WBC 5.61 (4.8-10.8) K/ul RBC 4.23 L (4.70-6.10) M/uL Hgb 14.3 (14.0-18.0) g/dl POC Hgb 14.3 (14.0-18.0) g/dl Hct 40.5 L (42.0-52.0) % POC Hct 42 (42-52) % MCV 95.7 (80.0-100.0) fL MCH 33.8 (25.0-34.0) pg MCHC 35.3 (32.0-36.0) g/dL RDW Std Deviation 46.9 H (36.4-46.3) fL RDW Coeff of [place]ba 13.2 (11.5-14.5) % Plt Count 175 (130-400) K/uL MPV 9.5 (9.4-12.4) fL PT 10.9 (9.0-12.0) Seconds INR 1.0 (0.9-1.1) APTT 30 (21-31) Seconds PTT Ratio 1.1 POC Sodium 136 (135-144) mmol/L Sodium 134 L (136-145) mmol/L POC Potassium 4.6 (3.3-5.0) mmol/L Potassium 4.6 (3.5-5.1) mmol/L POC Chloride 100 L (101-112) mmol/L Chloride 101 (98-107) mmol/L Carbon Dioxide 25 (21-32) mmol/L POC Total CO2 22 L (24-31) mmol/L Anion Gap 8 (3-11) POC Anion Gap 19.0 (16-25) mmol/L POC BUN 13 (7-18) mg/dl BUN 13 (6-23) mg/dl Creatinine 0.97 (0.6-1.4) mg/dl POC Creatinine 1.0 (0.6-1.3) mg/dl Est Cr Clr Drug Dosing Not Reportable eGFR 83.98 BUN/Creatinine Ratio 13.4 (10-20) Glucose 85 (70-99(Fasting)) mg/dl POC Glucose 88 (70-99) mg/dl POC Glucose (other) 88 (70-99) mg/dl Calcium 9.8 (8.6-10.3) mg/dl POC Ioniz Calcium Jesús 1.13 (1.12-1.32) mmol/l Magnesium 1.8 (1.7-2.4) mg/dl Total Bilirubin 1.2 H (0.2-1.0) mg/dl AST 33 (13-39) U/L ALT 24 (7-52) U/L Alkaline Phosphatase 52 (34-104) U/L Total Protein 7.0 (6.0-8.3) gm/dl Albumin 4.2 (3.4-5.0) gm/dl Globulin 2.8 (2.5-4.0) gm/dl Albumin/Globulin Ratio 1.5 (0.9-2) TSH 1.972 (0.300-4.500) uIu/ml Ethyl Alcohol mg/dL < 10.0 (<10.0) mg/dl Hepatitis C Ab Screen (Negative) 06/18/24 Range/Units 19:49 WBC (4.8-10.8) K/ul RBC (4.70-6.10) M/uL Hgb (14.0-18.0) g/dl POC Hgb (14.0-18.0) g/dl Hct (42.0-52.0) % POC Hct (42-52) % MCV (80.0-100.0) fL MCH (25.0-34.0) pg MCHC (32.0-36.0) g/dL RDW Std Deviation (36.4-46.3) fL RDW Coeff of Elba (11.5-14.5) % Plt Count (130-400) K/uL MPV (9.4-12.4) fL PT (9.0-12.0) Seconds INR (0.9-1.1) APTT (21-31) Seconds PTT Ratio POC Sodium (135-144) mmol/L Sodium (136-145) mmol/L POC Potassium (3.3-5.0) mmol/L Potassium (3.5-5.1) mmol/L POC Chloride (101-112) mmol/L Chloride (98-107) mmol/L Carbon Dioxide (21-32) mmol/L POC Total CO2 (24-31) mmol/L Anion Gap (3-11) POC Anion Gap (16-25) mmol/L POC BUN (7-18) mg/dl BUN (6-23) mg/dl Creatinine (0.6-1.4) mg/dl POC Creatinine (0.6-1.3) mg/dl Est Cr Clr Drug Dosing eGFR BUN/Creatinine Ratio (10-20) Glucose (70-99(Fasting)) mg/dl POC Glucose (70-99) mg/dl POC Glucose (other) (70-99) mg/dl Calcium (8.6-10.3) mg/dl POC Ioniz Calcium Jesús (1.12-1.32) mmol/l Magnesium (1.7-2.4) mg/dl Total Bilirubin (0.2-1.0) mg/dl AST (13-39) U/L ALT (7-52) U/L Alkaline Phosphatase (34-104) U/L Total Protein (6.0-8.3) gm/dl Albumin (3.4-5.0) gm/dl Globulin (2.5-4.0) gm/dl Albumin/Globulin Ratio (0.9-2) TSH (0.300-4.500) uIu/ml Ethyl Alcohol mg/dL (<10.0) mg/dl Hepatitis C Ab Screen Negative (Negative) Administered Medications Nicardipine HCl 25 mg/ Sodium (Chloride) 250 mls @ 0 mls/hr IV .Q0M BALDEV; Protocol Stop: 07/18/24 18:59 Last Titration: 06/18/24 21:15 Dose: 0 mg/hr, 0 mls/hr Documented By: Admin: 06/18/24 20:36 Dose: 5 mg/hr, 50 mls/hr Documented By: DENTON Co-signed By: CONCHIS Lactated Ringer's (Lr) 1,000 mls @ 75 mls/hr IV .[id number] BALDEV Stop: 06/21/24 22:59 Last Admin: 06/18/24 23:14 Dose: 75 mls/hr Documented By: SHAYNE Lorazepam (Lorazepam 2 Mg/1 Ml Vial) 2 mg IV UD PRN; Protocol PRN Reason: EtOH Withdrawal AWSS Score 8,9 Stop: 07/18/24 21:14 Last Admin: 06/18/24 23:34 Dose: 2 mg Documented By: SHAYNE Miscellaneous (Icu Protocol For Hyperglycemia) 1 each N/A ACHS [facility] Stop: 06/20/24 22:13 Last Admin: 06/18/24 23:15 Dose: Not Given Documented By: SHAYNE Discontinued Medications Sodium Chloride (Nss) 1,000 mls @ 999 mls/hr IV .Q1H1M ONE Stop: 06/18/24 19:37 Last Infusion: 06/18/24 20:21 Dose: Infused Documented By: Admin: 06/18/24 18:47 Dose: 999 mls/hr Documented By: BLAIR Thiamine HCl 500 mg/ Sodium (Chloride) 55 mls @ 210 mls/hr IV NOW STA Stop: 06/18/24 19:00 Last Infusion: 06/18/24 19:27 Dose: Infused Documented By: Admin: 06/18/24 19:10 Dose: 210 mls/hr Documented By: BLAIR Acetaminophen (Ofirmev) 1,000 mg in 100 mls @ 400 mls/hr IV NOW STA Stop: 06/18/24 19:07 Last Infusion: 06/18/24 19:27 Dose: Infused Documented By: Admin: 06/18/24 19:11 Dose: 400 mls/hr Documented By: BLAIR Tenecteplase 19 mg/ Syringe 3.8 mls @ 45.6 mls/min IV NOW ONE; Protocol Stop: 06/18/24 19:21 Last Admin: 06/18/24 19:52 Dose: 45.6 mls/min Documented By: DENTON Co-signed By: DORA Magnesium Sulfate/Dextrose (Magnesium Sulfate / D5w) 1 gm in 100 mls @ 50 mls/hr IV ONE ONE Stop: 06/18/24 22:44 Last Infusion: 06/18/24 23:13 Dose: Infused Documented By: Admin: 06/18/24 20:52 Dose: 50 mls/hr Documented By: DENTON Dextrose (D5w) 1,000 mls @ 40 mls/hr IV .Q24H STA Stop: 06/19/24 21:24 Last Infusion: 06/18/24 23:13 Dose: Infused Documented By: Admin: 06/18/24 22:45 Dose: 40 mls/hr Documented By: SHAYNE Ioversol (Optiray 320 125ml) 118 ml IV ONCE ONE Stop: 06/18/24 18:34 Last Admin: 06/18/24 18:34 Dose: 118 ml Documented By: SHARON Labetalol HCl (Labetalol Hcl Iv 5 Mg/Ml 20ml) Confirm Administered Dose 5 mg IV .STK-MED ONE Stop: 06/18/24 18:44 Last Admin: 06/18/24 18:55 Dose: 10 mg Documented By: BLAIR Labetalol HCl (Labetalol Hcl Iv 5 Mg/Ml 20ml) 10 mg IV NOW STA Stop: 06/18/24 18:56 Last Admin: 06/18/24 19:10 Dose: Not Given Documented By: BALIR Labetalol HCl (Labetalol Hcl Iv 5 Mg/Ml 20ml) 10 mg IV NOW STA Stop: 06/18/24 19:13 Last Admin: 06/18/24 19:41 Dose: 10 mg Documented By: DENTON Labetalol HCl (Labetalol Hcl Iv 5 Mg/Ml 20ml) 10 mg IV NOW STA Stop: 06/18/24 19:59 Last Admin: 06/18/24 20:31 Dose: 10 mg Documented By: DENTON Lorazepam (Lorazepam 2 Mg/1 Ml Vial) Confirm Administered Dose 2 mg .ROUTE .STK- MED ONE Stop: 06/18/24 19:06 Last Admin: 06/18/24 19:10 Dose: Not Given Documented By: BLAIR Lorazepam (Lorazepam 2 Mg/1 Ml Vial) 2 mg IV NOW STA Stop: 06/18/24 19:05 Last Admin: 06/18/24 19:07 Dose: 2 mg Documented By: BLAIR Lorazepam (Lorazepam 2 Mg/1 Ml Vial) 2 mg IV NOW STA Stop: 06/18/24 19:38 Last Admin: 06/18/24 19:42 Dose: 2 mg Documented By: DENTON Lorazepam (Lorazepam 2 Mg/1 Ml Vial) 0.25 mg IV NOW STA Stop: 06/18/24 21:14 Last Admin: 06/18/24 21:36 Dose: 0.25 mg Documented By: DENTON Miscellaneous (Stat Iv Infusion Titration Per Protocol) 1 each N/A NOW STA; Protocol Stop: 06/18/24 18:48 Last Admin: 06/18/24 23:14 Dose: Not Given Documented By: SHAYNE Miscellaneous (Stat Iv/Im) 1 each N/A NOW STA Stop: 06/18/24 19:11 Last Admin: 06/18/24 23:15 Dose: Not Given Documented By: SHAYNE Miscellaneous Information (Patient's Allergy Info Needs Entered) 1 each N/A Q30M STA Stop: 06/18/24 19:14 Last Admin: 06/18/24 20:19 Dose: Not Given Documented By: DENTON Sodium Chloride (Sodium Chloride 0.9% 10ml Flush) 20 ml IV NOW STA Stop: 06/18/24 19:11 Last Admin: 06/18/24 19:53 Dose: 20 ml Documented By: DENTON Imaging Data Radiologist's Impression: Chest X-Ray 06/18/24 18:17 EXAM: Portable AP chest radiograph TECHNIQUE: AP portable radiograph of the chest was obtained. INDICATION: Shortness of breath Comparison: None FINDINGS: LINES and TUBES: None CARDIOVASCULAR: Cardiac silhouette is mildly enlarged in size. LUNGS/PLEURA: Mild pulmonary vascular congestion. No focal consolidation identified. No significant pleural fluid. No discernible pneumothorax. OSSEOUS/OTHER: No displaced acute osseous process identified. IMPRESSION: Mild congestive changes of the cardiovascular system. Electronically signed by Jose Leigh 06-18-2024 8:[address] 06/18/24 18:17 EXAMINATION: Head CT without CLINICAL HISTORY: Stroke alert, confusion, word finding difficulty, gait instability PRIORS: None TECHNIQUE: Contiguous axial images were obtained through the head without the use of intravenous contrast. Sagittal and coronal reformations are supplied. FINDINGS: Mild parenchymal volume loss noted.. [place]-white differentiation is preserved. No edema or midline shift. No intra-axial or extra-axial hemorrhage. Ventricles are normal in size and configuration. Brainstem and cerebellum have a normal appearance. Calvarium unremarkable. Paranasal sinuses and mastoid air cells are well-pneumatized. Globes are intact. No retrobulbar abnormality. IMPRESSION: No CT evidence of an acute intracranial abnormality. Negative findings discussed with Dr. Benton in the emergency department at 6:35 PM EST on18 Jun 2024. Electronically signed by Kenya Daley 06-18-2024 6:36 PM Head CTA 06/18/24 18:26 EXAM: CTA head with CLINICAL HISTORY: Stroke alert, confusion, word finding difficulty, gait instability TECHNIQUE: Contiguous CTA axial images were obtained through the head after the administration of intravenous contrast. Sagittal and coronal reformations are supplied. PRIORS: Noncontrast head CT today FINDINGS: The vertebral arteries form the basilar artery at the skull base. [place] of [place] is patent. No thrombus or hemodynamically significant stenosis. No aneurysmal dilatation or mayfield aneurysm. No enhancing mass in the brain. IMPRESSION: No CTA evidence of an acute vascular abnormality. Negative head CT discussed with Dr. Benton in the emergency department at 6:35 PM EST on 18 Jun 2024. Electronically signed by Kenya Daley 06-18-2024 6:45 PM Neck CTA 06/18/24 18:26 EXAM: CT angio neck with con CLINICAL HISTORY: Stroke alert confusion, word finding difficulty, gait instability TECHNIQUE: Contiguous CTA axial images were obtained through the neck with the administration of intravenous contrast. Sagittal and coronal reformations are supplied. MIPS are supplied. COMPARISON: Noncontrast head CT today FINDINGS: A left-sided aortic arch is present with appropriate takeoff of the great vessels. The left vertebral artery arises directly from the aortic arch, variant anatomy. RIGHT: The common, internal and external carotid arteries are patent. Mild atherosclerotic plaque present in the right carotid bulb with no hemodynamically significant stenosis. The internal carotid artery enters the petrous portion of the skull base normally. No stenosis or thrombus. LEFT: The common, internal and external carotid arteries are patent. Mild atherosclerotic plaque present in the left carotid bulb with no hemodynamically significant stenosis. The internal carotid artery enters the petrous portion of the skull base normally. No stenosis or thrombus. No intimal flap or evidence of dissection in thecarotid or vertebral arteries.. The vertebral arteries are patent throughout their course with no significant atherosclerotic disease, stenosis or thrombus. Vertebral arteries are Co dominant. No sinus disease in the [id number]. Dental amalgam creates significant beam hardening artifact diminishing image quality lung apices are unremarkable. No enhancing mass at the skull base. IMPRESSION: 1. No CTA evidence ofhemodynamically significant stenosis or thrombus within the neck. Negative head CT results discussed with Dr. Benton in the emergency department at 6:35 PM EST on Electronically signed by Kenya Daley 06-18-2024 6:51 PM Discharge Plan Visit Data Chief Complaint: Stroke Alert Stated Complaint: CONFUSION, HEADACHE, NAUSEA ED Provider: Gregory Benton Discharge Problem: Aphasia, Alcohol dependence, Stroke-like symptoms Patient Disposition: Admitted As Inpatient Condition: Critical Discharge Instructions Interventions: ED Discharge Assessment Last Done: 06/18/24 21:49 Discharge Problem: Alcohol dependence Qualifiers: Substance use status: unspecified alcohol-induced disorder Qualified Code(s): F 10.29 - Alcohol dependence with unspecified alcohol-induced disorder
[2024-06-18] MEDS: OPTIRAY 320 125ml IV ONE (18:34)
--- NOTE | 2024-06-18 18:37 | CT Scan Report ---
EXAMINATION: Head CT without CLINICAL HISTORY: Stroke alert, confusion, word finding difficulty, gait instability PRIORS: None TECHNIQUE: Contiguous axial images were obtained through the head without the use of intravenous contrast. Sagittal and coronal reformations are supplied. FINDINGS: Mild parenchymal volume loss noted.. [place]-white differentiation is preserved. No edema or midline shift. No intra-axial or extra-axial hemorrhage. Ventricles are normal in size and configuration. Brainstem and cerebellum have a normal appearance. Calvarium unremarkable. Paranasal sinuses and mastoid air cells are well-pneumatized. Globes are intact. No retrobulbar abnormality. IMPRESSION: No CT evidence of an acute intracranial abnormality. Negative findings discussed with Dr. Benton in the emergency department at 6:35 PM EST June 2024. Electronically signed by Kenya Daley 06-18-2024 6:36 PM
--- NOTE | 2024-06-18 18:45 | CT Scan Report ---
EXAM: CTA head with CLINICAL HISTORY: Stroke alert, confusion, word finding difficulty, gait instability TECHNIQUE: Contiguous CTA axial images were obtained through the head after the administration of intravenous contrast. Sagittal and coronal reformations are supplied. PRIORS: Noncontrast head CT today FINDINGS: The vertebral arteries form the basilar artery at the skull base. [place] is patent. No thrombus or hemodynamically significant stenosis. No aneurysmal dilatation or mayfield aneurysm. No enhancing mass in the brain. IMPRESSION: No CTA evidence of an acute vascular abnormality. Negative head CT discussed with Dr. Benton in the emergency department at 6:35 PM EST on 18 Jun 2024. Electronically signed by Kenya Daley 06-18-2024 6:45 PM
[2024-06-18] MEDS: SODIUM CHLORIDE 0.9% 1,000 ML IV ONE (18:47)
--- NOTE | 2024-06-18 18:51 | CT Scan Report ---
EXAM: CT angio neck with con CLINICAL HISTORY: Stroke alert confusion, word finding difficulty, gait instability TECHNIQUE: Contiguous CTA axial images were obtained through the neck with the administration of intravenous contrast. Sagittal and coronal reformations are supplied. MIPS are supplied. COMPARISON: Noncontrast head CT today FINDINGS: A left-sided aortic arch is present with appropriate takeoff of the great vessels. The left vertebral artery arises directly from the aortic arch, variant anatomy. RIGHT: The common, internal and external carotid arteries are patent. Mild atherosclerotic plaque present in the right carotid bulb with no hemodynamically significant stenosis. The internal carotid artery enters the petrous portion of the skull base normally. No stenosis or thrombus. LEFT: The common, internal and external carotid arteries are patent. Mild atherosclerotic plaque present in the left carotid bulb with no hemodynamically significant stenosis. The internal carotid artery enters the petrous portion of the skull base normally. No stenosis or thrombus. No intimal flap or evidence of dissection in thecarotid or vertebral arteries.. The vertebral arteries are patent throughout their course with no significant atherosclerotic disease, stenosis or thrombus. Vertebral arteries are Co dominant. No sinus disease in the [id number]. Dental amalgam creates significant beam hardening artifact diminishing image quality lung apices are unremarkable. No enhancing mass at the skull base. IMPRESSION: 1. No CTA evidence ofhemodynamically significant stenosis or thrombus within the neck. Negative head CT results discussed with Dr. Benton in the emergency department at 6:35 PM EST on Electronically signed by Kenya Daley 06-18-2024 6:51 PM
[2024-06-18] MEDS: LABETALOL HCL IV 5 MG/ML 20ML IV ONE (18:55)
[2024-06-18] MEDS: LORazepam 2 MG/1 ML VIAL IV STA ×3 (19:07→21:36)
[2024-06-18] MEDS: THIAMINE HCL 500 MG in SODIUM CHLORIDE 0.9% 50 ML IV STA (19:10)
[2024-06-18] MEDS: LORazepam 2 MG/1 ML VIAL ONE (19:10)
[2024-06-18] MEDS: LABETALOL HCL IV 5 MG/ML 20ML IV STA ×3 (19:10→20:31)
[2024-06-18] MEDS: ACETAMINOPHEN 1,000 MG/100 ML VIAL IV STA (19:11)
[2024-06-18] MEDS ORDERED: No Aspirin within 24hrs of THROMBOLYTIC-Stroke PO SCH (19:15)
[2024-06-18 19:17] LABS: Hematocrit (blood only) 40.5 % (42.0-52.0); Hemoglobin 14.3 g/dl (14.0-18.0); Mean Corpuscular Hemoglobin 33.8 pg (25.0-34.0); Mean Corpuscular Hgb Conc 35.3 g/dL (32.0-36.0); Mean Corpuscular Volume 95.7 fL (80.0-100.0); Mean Platelet Volume 9.5 fL (9.4-12.4); Platelet Count 175 K/uL (130-400); RDW Coefficient of Variation 13.2 % (11.5-14.5); RDW Standard Deviation 46.9 fL (36.4-46.3); Red Blood Count 4.23 M/uL (4.70-6.10); White Blood Count 5.61 K/ul (4.8-10.8)
[2024-06-18 19:20] LABS: iSTAT Hemoglobin 14.3 g/dl (14.0-18.0); iSTAT Ionized Calcium 1.13 mmol/l (1.12-1.32); iSTAT Potassium 4.6 mmol/L (3.3-5.0)
[2024-06-18 19:31] LABS: Albumin Level 4.2 gm/dl (3.4-5.0); Anion Gap 8 (3-11); Bilirubin,Total 1.2 mg/dl (0.2-1.0); Calcium 9.8 mg/dl (8.6-10.3); Carbon Dioxide 25 mmol/L (21-32); Chloride 101 mmol/L (98-107); Magnesium 1.8 mg/dl (1.7-2.4); Potassium 4.6 mmol/L (3.5-5.1); Sodium 134 mmol/L (136-145)
[2024-06-18 19:37] LABS: Alanine Aminotransferase 24 U/L (7-52); Albumin Globulin Ratio 1.5 (0.9-2); Alkaline Phosphatase 52 U/L (34-104); Aspartate Aminotransferase 33 U/L (13-39); BUN Creatinine Ratio 13.4 (10-20); Blood Urea Nitrogen 13 mg/dl (6-23); Globulin 2.8 gm/dl (2.5-4.0); Glucose 85 mg/dl (70-99(Fasting))
[2024-06-18 19:43] LABS: Partial Thromboplastin Ratio 1.1; Partial Thromboplastin Time 30 Seconds (21-31); Prothrombin Time 10.9 Seconds (9.0-12.0)
[2024-06-18] MEDS: TENECTEPLASE 19 MG in SYRINGE 0 ML IV ONE (19:52)
[2024-06-18] MEDS: SODIUM CHLORIDE 0.9% 10ML FLUSH IV STA (19:53)
--- NOTE | 2024-06-18 20:02 | XRay Report ---
EXAM: Portable AP chest radiograph TECHNIQUE: AP portable radiograph of the chest was obtained. INDICATION: Shortness of breath Comparison: None FINDINGS: LINES and TUBES: None CARDIOVASCULAR: Cardiac silhouette is mildly enlarged in size. LUNGS/PLEURA: Mild pulmonary vascular congestion. No focal consolidation identified. No significant pleural fluid. No discernible pneumothorax. OSSEOUS/OTHER: No displaced acute osseous process identified. IMPRESSION: Mild congestive changes of the cardiovascular system. Electronically signed by Jose Leigh 06-18-2024 8:02 PM
[2024-06-18] MEDS: Patient's ALLERGY Info needs ENTERED STA (20:19)
[2024-06-18] MEDS: niCARdipine 25 MG in SODIUM CHLORIDE 0.9% 240 ML IV SCH (20:36)
--- NOTE | 2024-06-18 20:48 | History & Physical Report ---
Date of Service June 18, 2024 Assessment & Plan (1) Aphasia: Plan: Sudden onset aphasia associated with headache and involuntary shaking movements Acute ischemic CVA Possible alcohol withdrawal status post TNK Patient continues to be aphasic and confused post thrombolytic administration. Hypertensive crisis secondary to above Pulmonary congestion on CXR, possible CHF Hyperlipidemia, patient refused statin Rx recommendation from PCP on last outpatient visit Admit to ICU post TNK administration Neurochecks Continue nicardipine infusion MRI brain, TTE for additional stroke workup Update lipid profile Statin Rx in a.m. Neurology consult Re: Sudden onset aphasia JEFFERSON S, DT precautions Cautious IVF administration given pulmonary congestion on CXR, await TTE DVT prophylaxis. SCDs post thrombolytic Rx Full code Patient requesting updates providers. Yeni Butler, contact #[phone]. Text document was generated using [employer] voice recognition software. It may contain grammatical or spelling errors. Kindly contact undersigned for clarification of any documentation item in question. History of Present Illness Chief Complaint: Aphasia, confusion, shaking Primary Care Provider: Dr. Piper History obtained from patient's family and records. Unable to obtain history from patient secondary to disorientation/aphasia Medical history significant for hyperlipidemia, alcohol abuse. Patient had sudden onset aphasia this afternoon. Preceded by achy headache symptoms. Patient suddenly started shaking. No prior episodes. Patient seemed okay when he helped with her bags after returned home from an out-of-town conference today as per family account. SBP 190s upon arrival at the ER. Stroke alert called upon arrival at the ER. Patient received TNK following [facility] stroke specialist recommendations. IV nicardipine infusion initiated at the ER. 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 Allergies Allergy/AdvReac Type Severity Reaction Status Date / Time Penicillins Allergy Unknown Verified 06/18/24 19:39 Home Medications Medication Instructions Recorded Confirmed Type cetirizine 10 mg tablet 10 mg PO DAILY PRN Itching 06/18/24 06/18/24 History triamcinolone acetonide 0.1 % 1 applic topical BID PRN Rash 06/18/24 06/18/24 History topical cream Past Med/Surg History Problem List (Updated 06/18/24 @ 23:44 by Charles Ho MD) Aphasia Alcohol dependence Ischemic stroke Social History Smoking Status: Unknown if ever smoked Hx Alcohol Use: Yes Alcohol type: hard liquor Hx Substance Use: No Preferred Language: Senegalese Communication Ability: Effective Door Repairman Required: No Beliefs That Will Affect Care: None Current Living Situation: Spouse Other Information That Helps Us Care for You: No Feels Safe at Home: Yes Safety Concerns: Feels Safe At This Time Assistive Devices: Glasses Review of Systems Review of Systems: Could not be reliably obtained secondary to aphasia/confusion Physical Exam Physical Exam: GENERAL: Aphasic, tremulous, no respiratory distress SKIN: Normal color, warm HEENT: [place] palpebral conjunctivae, no ptosis, dry buccal mucosa NECK : Supple, no tenderness CHEST : CTA, no tenderness HEART : RRR, no obvious murmurs ABDOMEN: Some distention, nontender EXTREMITIES : No LE swelling/tenderness, palpable pulses, no other conspicuous deformities noted NEUROLOGIC : Aphasic, no facial asymmetry, tremulous, gait and stance not assessed Results & Data Results & Data Vital Signs (Past 12 Hours) Vital Signs Temp Pulse Pulse Resp BP BP Pulse Ox 06/18/24 20:45 75 169/92 H 06/18/24 20:38 36.8 C 71 22 162/89 H 93 06/18/24 20:31 73 166/108 H 06/18/24 20:23 36.8 C 74 18 166/108 H 96 06/18/24 20:08 36.8 C 75 16 153/58 H 94 06/18/24 20:00 77 20 114/77 93 06/18/24 19:56 79 12 181/90 H 95 06/18/24 19:50 78 152/93 H 06/18/24 19:45 164/96 H 06/18/24 19:41 78 172/110 H 06/18/24 19:40 83 14 172/110 H 93 06/18/24 19:36 80 16 176/119 H 95 06/18/24 19:28 85 175/86 H 06/18/24 19:26 175/86 H 06/18/24 19:20 84 18 170/91 H 98 06/18/24 19:17 87 20 182/96 H 93 06/18/24 19:17 182/96 H 06/18/24 19:15 87 18 92 06/18/24 19:12 83 23 97 06/18/24 19:10 100 06/18/24 19:10 100 06/18/24 19:10 185/124 H 06/18/24 19:06 83 15 100 06/18/24 19:05 169/114 H 06/18/24 19:00 194/113 H 06/18/24 18:55 195/115 H 06/18/24 18:55 76 195/115 H 06/18/24 18:36 85 06/18/24 18:35 213/119 H 06/18/24 18:12 36.6 C 74 18 194/100 H 97 O2 Del Method 06/18/24 20:45 06/18/24 20:38 Room Air 06/18/24 20:31 06/18/24 20:23 Room Air 06/18/24 20:08 Room Air 06/18/24 20:00 Room Air 06/18/24 19:56 Room Air 06/18/24 19:50 06/18/24 19:45 06/18/24 19:41 06/18/24 19:40 Room Air 06/18/24 19:36 Room Air 06/18/24 19:28 06/18/24 19:26 06/18/24 19:20 Room Air 06/18/24 19:17 Room Air 06/18/24 19:17 06/18/24 19:15 Room Air 06/18/24 19:12 Room Air 06/18/24 19:10 Room Air 06/18/24 19:10 Room Air 06/18/24 19:10 06/18/24 19:06 Room Air 06/18/24 19:05 06/18/24 19:00 06/18/24 18:55 06/18/24 18:55 06/18/24 18:36 06/18/24 18:35 06/18/24 18:12 Room Air Laboratory Results Laboratory Results WBC 5.61 K/ul (4.8-10.8) 06/18/24 19:07 RBC 4.23 M/uL (4.70-6.10) L 06/18/24 19:07 Hgb 14.3 g/dl (14.0-18.0) 06/18/24 19:07 POC Hgb 14.3 g/dl (14.0-18.0) 06/18/24 19:08 Hct 40.5 % (42.0-52.0) L 06/18/24 19:07 POC Hct 42 % (42-52) 06/18/24 19:08 MCV 95.7 fL (80.0-100.0) 06/18/24 19:07 MCH 33.8 pg (25.0-34.0) 06/18/24 19:07 MCHC 35.3 g/dL (32.0-36.0) 06/18/24 19:07 RDW Std Deviation 46.9 fL (36.4-46.3) H 06/18/24 19:07 RDW Coeff of [place] 13.2 % (11.5-14.5) 06/18/24 19:07 Plt Count 175 K/uL (130-400) 06/18/24 19:07 MPV 9.5 fL (9.4-12.4) 06/18/24 19:07 PT 10.9 Seconds (9.0-12.0) 06/18/24 19:07 INR 1.0 (0.9-1.1) 06/18/24 19:07 APTT 30 Seconds (21-31) 06/18/24 19:07 PTT Ratio 1.1 06/18/24 19:07 POC Sodium 136 mmol/L (135-144) 06/18/24 19:08 Sodium 134 mmol/L (136-145) L 06/18/24 19:07 POC Potassium 4.6 mmol/L (3.3-5.0) 06/18/24 19:08 Potassium 4.6 mmol/L (3.5-5.1) 06/18/24 19:07 POC Chloride 100 mmol/L (101-112) L 06/18/24 19:08 Chloride 101 mmol/L (98-107) 06/18/24 19:07 Carbon Dioxide 25 mmol/L (21-32) 06/18/24 19:07 POC Total CO2 22 mmol/L (24-31) L 06/18/24 19:08 Anion Gap 8 (3-11) 06/18/24 19:07 POC Anion Gap 19.0 mmol/L (16-25) 06/18/24 19:08 POC BUN 13 mg/dl (7-18) 06/18/24 19:08 BUN 13 mg/dl (6-23) 06/18/24 19:07 Creatinine 0.97 mg/dl (0.6-1.4) 06/18/24 19:07 POC Creatinine 1.0 mg/dl (0.6-1.3) 06/18/24 19:08 Est Cr Clr Drug Dosing Not Reportable 06/18/24 19:07 eGFR 83.98 06/18/24 19:07 BUN/Creatinine Ratio 13.4 (10-20) 06/18/24 19:07 Glucose 85 mg/dl (70-99(Fasting)) 06/18/24 19:07 POC Glucose 88 mg/dl (70-99) 06/18/24 19:05 POC Glucose (other) 88 mg/dl (70-99) 06/18/24 19:08 Calcium 9.8 mg/dl (8.6-10.3) 06/18/24 19:07 POC Ioniz Calcium Jesús 1.13 mmol/l (1.12-1.32) 06/18/24 19:08 Magnesium 1.8 mg/dl (1.7-2.4) 06/18/24 19:07 Total Bilirubin 1.2 mg/dl (0.2-1.0) H 06/18/24 19:07 AST 33 U/L (13-39) 06/18/24 19:07 ALT 24 U/L (7-52) 06/18/24 19:07 Alkaline Phosphatase 52 U/L (34-104) 06/18/24 19:07 Total Protein 7.0 gm/dl (6.0-8.3) 06/18/24 19:07 Albumin 4.2 gm/dl (3.4-5.0) 06/18/24 19:07 Globulin 2.8 gm/dl (2.5-4.0) 06/18/24 19:07 Albumin/Globulin Ratio 1.5 (0.9-2) 06/18/24 19:07 Ethyl Alcohol mg/dL < 10.0 mg/dl (<10.0) 06/18/24 19:07 Impressions Chest X-Ray 06/18/24 18:17 EXAM: Portable AP chest radiograph TECHNIQUE: AP portable radiograph of the chest was obtained. INDICATION: Shortness of breath Comparison: None FINDINGS: LINES and TUBES: None CARDIOVASCULAR: Cardiac silhouette is mildly enlarged in size. LUNGS/PLEURA: Mild pulmonary vascular congestion. No focal consolidation identified. No significant pleural fluid. No discernible pneumothorax. OSSEOUS/OTHER: No displaced acute osseous process identified. IMPRESSION: Mild congestive changes of the cardiovascular system. Electronically signed by Jose Leigh 06-18-2024 8:[address] 06/18/24 18:17 EXAMINATION: Head CT without CLINICAL HISTORY: Stroke alert, confusion, word finding difficulty, gait instability PRIORS: None TECHNIQUE: Contiguous axial images were obtained through the head without the use of intravenous contrast. Sagittal and coronal reformations are supplied. FINDINGS: Mild parenchymal volume loss noted.. [place]-white differentiation is preserved. No edema or midline shift. No intra-axial or extra-axial hemorrhage. Ventricles are normal in size and configuration. Brainstem and cerebellum have a normal appearance. Calvarium unremarkable. Paranasal sinuses and mastoid air cells are well-pneumatized. Globes are intact. No retrobulbar abnormality. IMPRESSION: No CT evidence of an acute intracranial abnormality. Negative findings discussed with Dr. Benton in the emergency department at 6:35 PM EST on18 Jun 2024. Electronically signed by Kenya Daley 06-18-2024 6:36 PM Head CTA 06/18/24 18:26 EXAM: CTA head with CLINICAL HISTORY: Stroke alert, confusion, word finding difficulty, gait instability TECHNIQUE: Contiguous CTA axial images were obtained through the head after the administration of intravenous contrast. Sagittal and coronal reformations are supplied. PRIORS: Noncontrast head CT today FINDINGS: The vertebral arteries form the basilar artery at the skull base. [place] of [place] is patent. No thrombus or hemodynamically significant stenosis. No aneurysmal dilatation or mayfield aneurysm. No enhancing mass in the brain. IMPRESSION: No CTA evidence of an acute vascular abnormality. Negative head CT discussed with Dr. Benton in the emergency department at 6:35 PM EST on 18 Jun 2024. Electronically signed by Kenya Daley 06-18-2024 6:45 PM Neck CTA 06/18/24 18:26 EXAM: CT angio neck with con CLINICAL HISTORY: Stroke alert confusion, word finding difficulty, gait instability TECHNIQUE: Contiguous CTA axial images were obtained through the neck with the administration of intravenous contrast. Sagittal and coronal reformations are supplied. MIPS are supplied. COMPARISON: Noncontrast head CT today FINDINGS: A left-sided aortic arch is present with appropriate takeoff of the great vessels. The left vertebral artery arises directly from the aortic arch, variant anatomy. RIGHT: The common, internal and external carotid arteries are patent. Mild atherosclerotic plaque present in the right carotid bulb with no hemodynamically significant stenosis. The internal carotid artery enters the petrous portion of the skull base normally. No stenosis or thrombus. LEFT: The common, internal and external carotid arteries are patent. Mild atherosclerotic plaque present in the left carotid bulb with no hemodynamically significant stenosis. The internal carotid artery enters the petrous portion of the skull base normally. No stenosis or thrombus. No intimal flap or evidence of dissection in thecarotid or vertebral arteries.. The vertebral arteries are patent throughout their course with no significant atherosclerotic disease, stenosis or thrombus. Vertebral arteries are Co dominant. No sinus disease in the [id number]. Dental amalgam creates significant beam hardening artifact diminishing image quality lung apices are unremarkable. No enhancing mass at the skull base. IMPRESSION: 1. No CTA evidence ofhemodynamically significant stenosis or thrombus within the neck. Negative head CT results discussed with Dr. Benton in the emergency department at 6:35 PM EST on Electronically signed by Kenya Daley 06-18-2024 6:51 PM Diagnostic Findings EKG as per my interpretation :Rate 75, NSR, normal axis, RBBB, T wave abnormalities inferior leads
[2024-06-18] MEDS: MAGNESIUM SULFATE / D5W 1 GM/100 ML BAG IV ONE (20:52)
[2024-06-18] MEDS ORDERED: PROMETHAZINE 6.25 MG/50.25 ML BAG IV PRN (21:15)
[2024-06-18] MEDS ORDERED: Ativan IV Alcohol Withdrawal--Active Protocol IV PRN (21:15)
[2024-06-18] MEDS ORDERED: ACETAMINOPHEN 1,000 MG/100 ML VIAL IV PRN (21:15)
[2024-06-18] MEDS ORDERED: PHARMACIST DISCHARGE MED REC CONSULT PRN (21:17)
[2024-06-18 21:34] LABS: Thyroid Stimulating Hormone 1.972 uIu/ml (0.300-4.500)
[2024-06-18] MEDS ORDERED: TRIAMCINOLONE ACET 0.1% CR 15 GM TUBE TOP PRN (22:14)
--- NOTE | 2024-06-18 22:37 | Critical Care Consultation ---
Date of Consultation June 18, 2024 Assessment & Plan (1) Ischemic stroke: (2) Alcohol dependence: Plan Reason Critically Ill: 1. Ischemic CVA s/p TNK 2. Alcohol dependence with possible withdrawal Neuro - [facility] ICU: unable to be assessed RASS GOAL 0 CTH at 1953 on 06/19/2024 or sooner for neurologic change MRI Brain ordered A1c, Lipid panel AWSS protocol, will need to ensure we are not treating stroke symptoms with Ativan, RN to notify provider prior to Ativan administration Low clinical suspicion for seizure Thiamine, MVI, folic acid as ordered. Unable to formally r/o Wernicke's Encephalopathy APAP PRN pain/fever Cardiac - Admit EKG NSR with RBBB, no baseline comparison available Wean nicardipine for SBP goal < 180mmHg TTE with bubble study pending Respiratory - HOB 30-45 with aspiration precautions SpO2 goal > 92% IS/Flutter as clinically feasible GI - Diet: Strict NPO pending nursing dysphagia screen Consider formal swallow study SUP: N/A Bowel regimen: Held pending PO intake No ascites on exam RENAL/LYTES - Replete electrolytes as indicated Law for accurate I/Os, removal per protocol Gentle mIVF while NPO Maintain net even to net negative ENDO - BG 140-180 per SCCM guidelines ISS if needed while inpatient TSH WNL HEME - S/p TNK ID - No acute concerns Trend WBC and fever curve LINES/TUBES/DRAINS - PIV x2 Law (Day #1) DVT PROPHYLAXIS - Contraindicated I have personally spent 35 minutes of critical care time in the direct management of this patient. This is a life/limb threatening event. This includes time spent evaluating patient, direct bedside care, chart review, placing orders, interpretation of diagnostic studies, discussion with consultants, patient, and family members, as well as other required patient management activities. This time is exclusive of all separately billable procedures, and teaching time and separate from and in addition to any other critical care service time. Thank you for allowing us to participate in the care of this patient. Please refer to my attending physician's documentation for any further recommendations. History of Present Illness Reason for Consultation: S/p TNK Requesting Physician: Chetan Attending Physician: Valentin Mcdonough DO History of Present Illness Mr. Adria Butler is a 68YOM with a history of ETOH dependence and eczema who presented to [facility] [place] ED this evening as a stroke alert due to acute onset headache, dysarthria, gait instability, and confusion. LKW 1730. Patient was hypertensive to 190/100mmHg on arrival to ED. Initial NIHSS []. He was taken emergently to CT. CTH was negative for bleed. Underwent CTA H/N which did not show LVO. He received 20mg total Labetalol with improvement in hemodynamics. Decision made with [facility] Tele-Neurologist to administer TNKase. This was given at 1953. Received 1L NSS as well as 40mg total Ativan and 500mg IV Thiamine. Remainder of work-up thus far showing mildly elevated TBili, negative ETOH, TSH WNL. CXR with mild congestive changes. He was started on nicardipine for blood pressure control. Admitted to ICU for continuation of care. Patient was seen on arrival to ICU 111. He awakens to voice, agitated at times, attempting to pull at medical equipment. Moving all extremities spontaneously. PERRL. No nystagmus. did arrive to bedside and was able to recognize her, follow commands, speak in full sentence sensibly. Nods head yes and no as well. This is a significant improvement from prior per . Full ROS unable to be obtained, but patient told his headache was resolved. Allergies Allergy/AdvReac Type Severity Reaction Status Date / Time Penicillins Allergy Unknown Verified 06/18/24 19:39 Home Medications Medication Instructions Recorded Confirmed Type cetirizine 10 mg tablet 10 mg PO DAILY PRN Itching 06/18/24 06/18/24 History triamcinolone acetonide 0.1 % 1 applic topical BID PRN Rash 06/18/24 06/18/24 History topical cream Patient History Social History Smoking Status: Unknown if ever smoked Hx Alcohol Use: Yes Alcohol type: hard liquor Hx Substance Use: No Preferred Language: Serbian Communication Ability: Effective Chemical Manager Required: No Beliefs That Will Affect Care: None Current Living Situation: Spouse Other Information That Helps Us Care for You: No Feels Safe at Home: Yes Safety Concerns: Feels Safe At This Time Assistive Devices: Glasses Review of Systems Review of Systems: Unobtainable due to cognitive status Physical Exam Constitutional: well developed and + combative; no acute distress Eyes: PERRL and + photophobia; no scleral abnormality and no nystagmus ENMT: external ear and nose normal, oropharynx normal Dry MM Neck: trachea midline, no thyromegaly Respiratory: normal respiratory effort, lungs clear to auscultation Cardiovascular: RRR, no murmur, no edema Gastrointestinal (Abdomen): normal bowel sounds, soft, nontender, no hepatosplenomegaly No ascites, no fluid wave present Musculoskeletal: no cyanosis or clubbing, extremities motor strength 5/5 Skin: Scattered dry and erythematous patches consistent with eczema Neurologic: moves all extremities; no focal motor deficits Speech / Cognition: + abnormal speech; no receptive aphasia and normal cognition Cranial Nerves: PERRL, normal facial strength, tongue midline and able to rotate head bilaterally unable to adequately assess for asterixis, but no obvious tremor Genitourinary: law in place with small amount of old blood around urethral meatus Results & Data Results & Data Vital Signs (Past 12 Hours) Vital Signs Temp Pulse Pulse Resp BP BP Pulse Ox 06/18/24 21:49 06/18/24 21:38 36.8 C 84 20 146/98 H 93 06/18/24 21:23 36.7 C 82 24 129/70 94 06/18/24 21:08 36.4 C L 77 16 131/106 H 93 06/18/24 20:53 37.0 C 78 16 149/78 H 93 06/18/24 20:45 75 169/92 H 06/18/24 20:38 36.8 C 71 22 162/89 H 93 06/18/24 20:31 73 166/108 H 06/18/24 20:23 36.8 C 74 18 166/108 H 96 06/18/24 20:08 36.8 C 75 16 153/58 H 94 06/18/24 20:00 77 20 114/77 93 06/18/24 19:56 79 12 181/90 H 95 06/18/24 19:50 78 152/93 H 06/18/24 19:45 164/96 H 06/18/24 19:41 78 172/110 H 06/18/24 19:40 83 14 172/110 H 93 06/18/24 19:36 80 16 176/119 H 95 06/18/24 19:28 85 175/86 H 06/18/24 19:26 175/86 H 05/04/25 19:20 84 18 170/91 H 98 06/18/24 19:17 87 20 182/96 H 93 06/18/24 19:17 182/96 H 06/18/24 19:15 87 18 92 06/18/24 19:12 83 23 97 06/18/24 19:10 100 06/18/24 19:10 100 06/18/24 19:10 185/124 H 06/18/24 19:06 83 15 100 06/18/24 19:05 169/114 H 06/18/24 19:00 194/113 H 06/18/24 18:55 195/115 H 06/18/24 18:55 76 195/115 H 06/18/24 18:36 85 06/18/24 18:35 213/119 H 06/18/24 18:12 36.6 C 74 18 194/100 H 97 O2 Del Method 06/18/24 21:49 Room Air 06/18/24 21:38 Room Air 06/18/24 21:23 Room Air 06/18/24 21:08 Room Air 06/18/24 20:53 Room Air 06/18/24 20:45 06/18/24 20:38 Room Air 06/18/24 20:31 06/18/24 20:23 Room Air 06/18/24 20:08 Room Air 06/18/24 20:00 Room Air 06/18/24 19:56 Room Air 06/18/24 19:50 06/18/24 19:45 06/18/24 19:41 06/18/24 19:40 Room Air 06/18/24 19:36 Room Air 06/18/24 19:28 06/18/24 19:26 06/18/24 19:20 Room Air 06/18/24 19:17 Room Air 06/18/24 19:17 06/18/24 19:15 Room Air 06/18/24 19:12 Room Air 06/18/24 19:10 Room Air 06/18/24 19:10 Room Air 06/18/24 19:10 06/18/24 19:06 Room Air 06/18/24 19:05 06/18/24 19:00 06/18/24 18:55 06/18/24 18:55 06/18/24 18:36 06/18/24 18:35 06/18/24 18:12 Room Air Laboratory Results Reviewed Diagnostic Findings Reviewed Medications Administered See FLORENCE Coding Level of Care Code 23266 IN/OBS CONSULT LVL 2,35M Diagnoses Ischemic stroke I63.9 Alcohol dependence F10.20 Time Spent (min) 35
[2024-06-18] MEDS: DEXTROSE 5% 1,000 ML IV STA (22:45)
[2024-06-18] MEDS: LACTATED RINGER'S 1,000 ML IV SCH (23:14)
[2024-06-18] MEDS: STAT IV Infusion **Titration per Protocol STA (23:14)
[2024-06-18] MEDS: STAT IV/IM STA (23:15)
[2024-06-18] MEDS: ICU Protocol for HYPERglycemia SCH (23:15)
[2024-06-18] MEDS: LORazepam 2 MG/1 ML VIAL IV PRN (23:34)
[2024-06-18 23:40] LABS: Appearance Urine Clear (Clear); Bacteria Urine Automated None Seen (None Seen); Bilirubin Urine Negative (Negative); Blood Urine Trace (Negative); Cast Urine Automated 0-2 /lpf (0-2); Color Urine Yellow; Epithelial Cell Urine Auto 0-2 /hpf (0-2); Glucose Urine UA Trace (Negative); Ketones Urine Trace (Negative); Leukocyte Esterase Urine Negative (Negative); Nitrite Urine Negative (Negative); Protein Urine Negative (Negative); Specific Gravity Urine > 1.045 (1.000-1.030); Urobilinogen Urine Negative (Negative); WBC Urine Automated 0-5 /hpf (0-5); pH Urine 7.5 (4.5-7.5)
[2024-06-19 05:40] LABS: Basophils # (auto) 0.02 K/uL (0.00-0.20); Basophils % (auto) 0.4 %; Eosinophils # (auto) 0.01 K/uL (0.00-0.50); Eosinophils % (auto) 0.2 %; Hemoglobin 12.8 g/dl (14.0-18.0); Immature Granulocytes # (auto) 0.02 K/uL (0.01-0.20); Immature Granulocytes % (auto) 0.4 %; Lymphocytes # (auto) 1.07 K/uL (1.20-3.40); Lymphocytes % (auto) 20.6 %; Mean Corpuscular Hgb Conc 34.6 g/dL (32.0-36.0); Mean Corpuscular Volume 98.1 fL (80.0-100.0); Mean Platelet Volume 9.3 fL (9.4-12.4); Monocytes # (auto) 0.47 K/uL (0.11-0.59); Neutrophils # (auto) 3.61 K/uL (1.40-6.50); Neutrophils % (auto) 69.4 %; Platelet Count 155 K/uL (130-400); RDW Coefficient of Variation 13.4 % (11.5-14.5); RDW Standard Deviation 48.1 fL (36.4-46.3); Red Blood Count 3.77 M/uL (4.70-6.10)
[2024-06-19 05:58] LABS: BUN Creatinine Ratio 15.1 (10-20); Calcium 9.1 mg/dl (8.6-10.3); Chol HDL Ratio 2.4 (0-5); Creatinine Clr Calc Pharmacy 85.5 ml/min; Magnesium 2.1 mg/dl (1.7-2.4); Phosphorus 2.6 mg/dl (2.5-4.9); Potassium 4.9 mmol/L (3.5-5.1)
[2024-06-19] MEDS: ICU ELECTROLYTE REPLACEMENT PROTOCOL SCH (06:05)
[2024-06-19 07:02] LABS: Estimated Average Glucose 105 mg/dl; Hemoglobin A1C 5.3 % (4.5-5.6)
[2024-06-19] MEDS: LORazepam 2 MG/1 ML VIAL IV PRN (07:50)
[2024-06-19] MEDS: FOLIC ACID 1 MG TAB PO SCH (08:20)
[2024-06-19] MEDS: MULTIVITAMIN TAB PO SCH (08:20)
[2024-06-19] MEDS: ATORVASTATIN 40 MG TAB PO SCH (08:20)
[2024-06-19] MEDS: THIAMINE HCL 100 MG TAB PO SCH (08:21)
--- NOTE | 2024-06-19 08:57 | Electrocardiogram Report ---
Test Reason : Blood Pressure : */* mmHG Vent. Rate : 76 BPM Atrial Rate : 76 BPM P-R Int : 164 ms QRS Dur : 120 ms QT Int : 412 ms P-R-T Axes : 71 -2 11 degrees QTcB Int : 463 ms Normal sinus rhythm Right bundle branch block Low voltage QRS Limb lead Abnormal ECG When compared with ECG of 08-Jun-2022 08:14, No significant change was found Confirmed by Michelle Ken ([id number]) on 06/19/2024 8:56:59 AM Referred By: REFERRED SELF Confirmed By: Michelle Ken
--- NOTE | 2024-06-19 10:38 | Pharmacy Report ---
- Date of Service June 19, 2024 - Pharmacy CVA/TIA Medication Review Medications to Prevent Stroke handout has been added to the patients discharge packet. Antiplatelet(s) * On hold for now given TNKase administration - Aspirin to start 24 hrs post- TNKase Cholesterol * High intensity statin: atorvastatin 40 mg daily DVT Prophylaxis * SCD knee Therapeutic Anticoagulation * No history of Afib/Aflutter noted Type 2 Diabetes * Patient does not have T2DM
--- NOTE | 2024-06-19 11:25 | Neurology Consultation ---
Date of Consultation June 19, 2024 Assessment & Plan (1) Alcohol dependence: 68 yo M presenting with acute onset altered mental status yesterday concerning for alcohol withdrawl rather than ischemic stroke. Now within 24 hrs post TNK, awaiting repeating imaging and MRI. Continue treatment for alcohol withdrawal. -- MRI Brain without contrast pending, if negative, no further stroke workup recommended -- Continue alcohol withdrawal management including thiamine -- We will follow for MRI results. Telehealth Consultation Telehealth Information Telehealth Information: I performed this visit using a real-time telehealth connection between my location and the patients location ([facility]). After connecting through interactive tele-video, patient was identified by name and date of and/or wristband check.Patient (or authorized healthcare quality audit representative) was informed that this was a telemedicine visit and it was being conducted confidentially over secure lines. My office door was closed and no one else was present in the room with me.Patient (or authorized healthcare quality audit representative) provided consent to proceed with the visit, expressed an understanding of privacy and security of the telemedicine visit, and gave permission to have a hospital quality audit representative in the room in order to assist with the visit and to conduct portions of the visit, as needed. I informed the pat ient (or authorized healthcare quality audit representative) that I reviewed their record and presented the opportunity for them to ask any questions regarding the visit today. The patient agreed to participate. History of Present Illness Reason for Consultation: [facility] Requesting Physician: Dr. Mcdonough Attending Physician: Valentin Mcdonough, DO History of Present Illness Adria Butler is a 68 yo M who presented yesterday with altered mental status and dizziness. The patients was out of town for 4 days and symptoms were noted when she returned home, after he helped her unload the car. He has a history of alcoholism but unknown last drink. He is currently sedated on ativan due to alcohol withdrawl symptoms and unable to contribute to the history. No seizure noted per nursing but was agitated and moving all extremities this morning symmetrically. 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 Speech dysarthric, no facial asymmetry. Spontaneous appedicular movements symmetric and full. No abnormal movements noted. Results & Data Vital Signs (Past 12 Hours) Vital Signs Temp Pulse Pulse Resp BP BP Pulse Ox 06/19/24 09:53 36.7 C 48 L 14 122/67 97 06/19/24 08:53 36.7 C 50 L 16 162/73 H 92 06/19/24 08:00 44 L 06/19/24 07:53 36.8 C 59 L 22 153/88 H 93 06/19/24 06:53 36.8 C 54 L 24 150/85 H 95 06/19/24 06:33 56 L 18 92 06/19/24 06:31 150/85 H 06/19/24 06:31 150/85 H 06/19/24 06:31 150/85 H 06/19/24 06:31 150/85 H 06/19/24 06:31 150/85 H 06/19/24 06:09 59 L 16 97 06/19/24 06:02 152/65 H 06/19/24 06:00 63 17 94 06/19/24 05:33 51 L 15 97 06/19/24 05:31 157/74 H 06/19/24 04:55 58 L 18 170/80 H 93 06/19/24 03:55 75 22 125/100 96 06/19/24 03:25 37 C 82 17 142/101 H 95 06/19/24 02:55 36.9 C 62 17 159/78 H 99 06/19/24 02:23 36.9 C 55 L 20 172/84 H 98 06/19/24 01:55 36.8 C 61 17 164/79 H 99 06/19/24 01:25 61 18 153/87 H 97 06/19/24 00:55 65 20 161/83 H 94 06/19/24 00:25 82 14 108/63 98 06/19/24 00:00 61 06/18/24 23:55 77 16 130/80 95 06/18/24 23:25 36.8 C 74 17 130/81 95 O2 Del Method O2 Flow Rate 06/19/24 09:53 Room Air 06/19/24 08:53 Room Air 06/19/24 08:00 06/19/24 07:53 Nasal Cannula 2 06/19/24 06:53 Nasal Cannula 2 06/19/24 06:33 06/19/24 06:31 06/19/24 06:31 06/19/24 06:31 06/19/24 06:31 06/19/24 06:31 06/19/24 06:09 06/19/24 06:02 06/19/24 06:00 06/19/24 05:33 06/19/24 05:31 06/19/24 04:55 Nasal Cannula 2 06/19/24 03:55 Nasal Cannula 2 06/19/24 03:25 Nasal Cannula 2 06/19/24 02:55 Nasal Cannula 2 06/19/24 02:23 Nasal Cannula 2 06/19/24 01:55 Nasal Cannula 2 06/19/24 01:25 Nasal Cannula 2 06/19/24 00:55 Nasal Cannula 1 06/19/24 00:25 Nasal Cannula 2 06/19/24 00:00 06/18/24 23:55 Room Air 06/18/24 23:25 Room Air Laboratory Results Abnormal lab results 06/18/24 06/18/24 06/18/24 Range/Units 19:07 19:08 23:18 RBC 4.23 L (4.70-6.10) M/uL Hgb (14.0-18.0) g/dl Hct 40.5 L (42.0-52.0) % RDW Std Deviation 46.9 H (36.4-46.3) fL MPV (9.4-12.4) fL Lymph # (Auto) (1.20-3.40) K/uL Sodium 134 L (136-145) mmol/L POC Chloride 100 L (101-112) mmol/L POC Total CO2 22 L (24-31) mmol/L Glucose (70-99(Fasting)) mg/dl Total Bilirubin 1.2 H (0.2-1.0) mg/dl Ur Specific Coker > 1.045 H (1.000-1.030) Urine Glucose (UA) Trace H (Negative) Urine Ketones Trace H (Negative) Urine Blood Trace H (Negative) Urine RBC (Auto) 6-10 H (0-2) /hpf 06/19/24 Range/Units 05:12 RBC 3.77 L (4.70-6.10) M/uL Hgb 12.8 L (14.0-18.0) g/dl Hct 37.0 L (42.0-52.0) % RDW Std Deviation 48.1 H (36.4-46.3) fL MPV 9.3 L (9.4-12.4) fL Lymph # (Auto) 1.07 L (1.20-3.40) K/uL Sodium (136-145) mmol/L POC Chloride (101-112) mmol/L POC Total CO2 (24-31) mmol/L Glucose 101 H (70-99(Fasting)) mg/dl Total Bilirubin (0.2-1.0) mg/dl Ur Specific Coker (1.000-1.030) Urine Glucose (UA) (Negative) Urine Ketones (Negative) Urine Blood (Negative) Urine RBC (Auto) (0-2) /hpf Diagnostic Findings CT/CTA - Unremarkable (1) Alcohol dependence Substance use status: unspecified alcohol-induced disorder Qualified Code(s): F10.29 - Alcohol dependence with unspecified alcohol-induced disorder
--- NOTE | 2024-06-19 11:34 | Critical Care Progress Note ---
Date of Service June 19, 2024 Assessment & Plan (1) Ischemic stroke: (2) Alcohol dependence: Plan Reason Critically Ill: 1. Ischemic CVA s/p TNK 2. Alcohol dependence with possible withdrawal Neuro - [facility] ICU: unable to be assessed RASS GOAL 0 CTH at 1953 on 06/19/2024 or sooner for neurologic change MRI Brain ordered A1c, Lipid panel AWSS protocol, will need to ensure we are not treating stroke symptoms with Ativan, RN to notify provider prior to Ativan administration Low clinical suspicion for seizure High-dose thiamine x 3 days, folic acid as ordered. Unable to formally r/o Wernicke's Encephalopathy APAP PRN pain/fever Cardiac - Admit EKG NSR with RBBB, no baseline comparison available TTE with bubble study pending Respiratory - HOB 30-45 with aspiration precautions SpO2 goal > 92% IS/Flutter as clinically feasible GI - Diet: Strict NPO pending nursing dysphagia screen Consider formal swallow study SUP: N/A Bowel regimen: Held pending PO intake No ascites on exam RENAL/LYTES - Replete electrolytes as indicated Law for accurate I/Os, removal per protocol Gentle mIVF while NPO Maintain net even to net negative ENDO - BG 140-180 per SCCM guidelines ISS if needed while inpatient TSH WNL HEME - S/p TNK ID - No acute concerns Trend WBC and fever curve LINES/TUBES/DRAINS - PIV x2 Law (Day #1) DVT PROPHYLAXIS - Contraindicated Admission and Anticipated Discharge Date Admission Date: June 18, 2024 Subjective Patient seen and examined. Patient was very delirious prior to my evaluation and received 3 mg of IV Ativan per nursing discretion due to alcohol withdrawal. His speech is garbled and is difficult to understand him. He does not appear to be in any significant distress. Hemodynamics are stable. Oxygen requirements are minimal. Review of Systems Review of Systems: All systems reviewed & are unremarkable except as noted in HPI & below Physical Exam Constitutional: well developed and + combative; no acute distress Eyes: PERRL and + photophobia; no scleral abnormality and no nystagmus ENMT: external ear and nose normal, oropharynx normal Dry MM Neck: trachea midline, no thyromegaly Respiratory: normal respiratory effort, lungs clear to auscultation Cardiovascular: RRR, no murmur, no edema Gastrointestinal (Abdomen): normal bowel sounds, soft, nontender, no hepatosplenomegaly No ascites, no fluid wave present Musculoskeletal: no cyanosis or clubbing, extremities motor strength 5/5 Skin: Scattered dry and erythematous patches consistent with eczema Neurologic: moves all extremities; no focal motor deficits Speech / Cognition: + abnormal speech; no receptive aphasia and normal cognition Cranial Nerves: PERRL, normal facial strength, tongue midline and able to rotate head bilaterally unable to adequately assess for asterixis, but no obvious tremor Genitourinary: law in place with small amount of old blood around urethral meatus Results & Data Results & Data Vital Signs (Past 12 Hours) Vital Signs Temp Pulse Pulse Resp BP BP Pulse Ox 06/19/24 09:53 36.7 C 48 L 14 122/67 97 06/19/24 08:53 36.7 C 50 L 16 162/73 H 92 06/19/24 08:00 44 L 06/19/24 07:53 36.8 C 59 L 22 153/88 H 93 06/19/24 06:53 36.8 C 54 L 24 150/85 H 95 06/19/24 06:33 56 L 18 92 06/19/24 06:31 150/85 H 06/19/24 06:31 150/85 H 06/19/24 06:31 150/85 H 06/19/24 06:31 150/85 H 06/19/24 06:31 150/85 H 06/19/24 06:09 59 L 16 97 06/19/24 06:02 152/65 H 06/19/24 06:00 63 17 94 06/19/24 05:33 51 L 15 97 06/19/24 05:31 157/74 H 06/19/24 04:55 58 L 18 170/80 H 93 06/19/24 03:55 75 22 125/100 96 06/19/24 03:25 37 C 82 17 142/101 H 95 06/19/24 02:55 36.9 C 62 17 159/78 H 99 06/19/24 02:23 36.9 C 55 L 20 172/84 H 98 06/19/24 01:55 36.8 C 61 17 164/79 H 99 06/19/24 01:25 61 18 153/87 H 97 06/19/24 00:55 65 20 161/83 H 94 06/19/24 00:25 82 14 108/63 98 06/19/24 00:00 61 06/18/24 23:55 77 16 130/80 95 O2 Del Method O2 Flow Rate 06/19/24 09:53 Room Air 06/19/24 08:53 Room Air 06/19/24 08:00 06/19/24 07:53 Nasal Cannula 2 06/19/24 06:53 Nasal Cannula 2 06/19/24 06:33 06/19/24 06:31 06/19/24 06:31 06/19/24 06:31 06/19/24 06:31 06/19/24 06:31 06/19/24 06:09 06/19/24 06:02 06/19/24 06:00 06/19/24 05:33 06/19/24 05:31 06/19/24 04:55 Nasal Cannula 2 06/19/24 03:55 Nasal Cannula 2 06/19/24 03:25 Nasal Cannula 2 06/19/24 02:55 Nasal Cannula 2 06/19/24 02:23 Nasal Cannula 2 06/19/24 01:55 Nasal Cannula 2 06/19/24 01:25 Nasal Cannula 2 06/19/24 00:55 Nasal Cannula 1 06/19/24 00:25 Nasal Cannula 2 06/19/24 00:00 06/18/24 23:55 Room Air Coding Level of Care Code 99266 SUB INP/OBS CARE 2MIN Diagnoses Ischemic stroke I63.9 Alcohol dependence F10.29 Substance use status: unspecified alcohol-induced disorder (2) Alcohol dependence Substance use status: unspecified alcohol-induced disorder Qualified Code(s): F10.29 - Alcohol dependence with unspecified alcohol-induced disorder
--- NOTE | 2024-06-19 12:19 | Hospitalist Progress Note ---
Date of Service June 19, 2024 Assessment & Plan (1) Aphasia determined by examination: (2) Alcohol withdrawal syndrome, with delirium: (3) Alcohol dependence: (4) Hypertension, uncontrolled: (5) Dyslipidemia: (6) Acute heart failure: Plan Patient 68-year-old gentleman presented with acute expressive and receptive aphasia. Presumed ischemic stroke and was treated with TNK. Post TNK patient with significant delirium consistent with alcohol withdrawal with known history of alcohol use and dependence. Continue post TNK protocol, head CT 24-hour follow-up, hold antiplatelets for 24 hours MRI of the brain pending for further evaluation of stroke versus all symptoms related to alcohol withdrawal Echocardiogram pending for possible decompensated heart failure, possible alcohol induced cardiomyopathy Continue management of withdrawal symptoms with benzodiazepine Discussed plan of care with abstract writer Monitor electrolytes Patient with some mild bradycardia, continue to monitor on telemetry Hypertension significantly improved with management of his withdrawal symptoms Continue thiamine and folate supplementation Updated patient's via phone Admission and Anticipated Discharge Date Admission Date: June 18, 2024 Subjective Patient fairly sedated from receiving Ativan. Nursing reports he was quite agitated and needed a significant mount of Ativan throughout the night. Physical Exam Physical Exam: Constitutional: Lethargic HEENT: Mucous membranes moist. Lungs: Clear to auscultation, decreased, no wheezes rales or rhonchi CV: S1-S2, regular, bradycardic Abdomen: Soft, nontender, nondistended Extremities: No significant edema Neuro: Minimally arousable Psych: Flat Results & Data Results & Data Vital Signs (Past 12 Hours) Vital Signs Temp Pulse Pulse Resp BP BP Pulse Ox 06/19/24 09:53 36.7 C 48 L 14 122/67 97 06/19/24 08:53 36.7 C 50 L 16 162/73 H 92 06/19/24 08:00 44 L 06/19/24 07:53 36.8 C 59 L 22 153/88 H 93 06/19/24 06:53 36.8 C 54 L 24 150/85 H 95 06/19/24 06:33 56 L 18 92 06/19/24 06:31 150/85 H 06/19/24 06:31 150/85 H 06/19/24 06:31 150/85 H 06/19/24 06:31 150/85 H 06/19/24 06:31 150/85 H 06/19/24 06:09 59 L 16 97 06/19/24 06:02 152/65 H 06/19/24 06:00 63 17 94 06/19/24 05:33 51 L 15 97 06/19/24 05:31 157/74 H 06/19/24 04:55 58 L 18 170/80 H 93 06/19/24 03:55 75 22 125/100 96 06/19/24 03:25 37 C 82 17 142/101 H 95 06/19/24 02:55 36.9 C 62 17 159/78 H 99 06/19/24 02:23 36.9 C 55 L 20 172/84 H 98 06/19/24 01:55 36.8 C 61 17 164/79 H 99 06/19/24 01:25 61 18 153/87 H 97 06/19/24 00:55 65 20 161/83 H 94 06/19/24 00:25 82 14 108/63 98 O2 Del Method O2 Flow Rate 06/19/24 09:53 Room Air 06/19/24 08:53 Room Air 06/19/24 08:00 06/19/24 07:53 Nasal Cannula 2 06/19/24 06:53 Nasal Cannula 2 06/19/24 06:33 06/19/24 06:31 06/19/24 06:31 06/19/24 06:31 06/19/24 06:31 06/19/24 06:31 06/19/24 06:09 06/19/24 06:02 06/19/24 06:00 06/19/24 05:33 06/19/24 05:31 06/19/24 04:55 Nasal Cannula 2 06/19/24 03:55 Nasal Cannula 2 06/19/24 03:25 Nasal Cannula 2 06/19/24 02:55 Nasal Cannula 2 06/19/24 02:23 Nasal Cannula 2 06/19/24 01:55 Nasal Cannula 2 06/19/24 01:25 Nasal Cannula 2 06/19/24 00:55 Nasal Cannula 1 06/19/24 00:25 Nasal Cannula 2 Diagnostic Findings Reviewed imaging, laboratory and diagnostic studies. Pertinent findings as below. CBC, BMP stable Reviewed imaging studies performed on admission (3) Alcohol dependence Substance use status: unspecified alcohol-induced disorder Qualified Code(s): F10.29 - Alcohol dependence with unspecified alcohol-induced disorder
[2024-06-19] MEDS: THIAMINE HCL 500 MG in SODIUM CHLORIDE 0.9% 50 ML IV SCH (15:00)
--- NOTE | 2024-06-19 21:50 | CT Scan Report ---
Exam(s): CT HEAD Without Contrast EXAM: CT Head Without Intravenous Contrast CLINICAL HISTORY: Reason for exam: Post TPA/TNK 24 hour. TECHNIQUE: Axial computed tomography images of the head/brain without intravenous contrast. CTDI is 71.37 mGy and DLP is 703.85 mGy-cm. Automated exposure control was utilized for the study. A dose lowering technique was utilized adhering to the principles of ALARA. COMPARISON: 06/18/24 FINDINGS: Brain: No hemorrhage. No apparent acute cortical infarct. No mass lesion or midline shift. Senescent changes. Ventricles: No hydrocephalus. Bones/joints: No acute fracture. Soft tissues: Unremarkable. Sinuses: No acute sinusitis. Mastoid air cells: No mastoid effusion. Orbits: No acute process. IMPRESSION: No acute intracranial hemorrhage. Electronically signed by: Fuentes Montoya M.D. 06/19/24 21:49 PM
--- NOTE | 2024-06-19 22:52 | Communication Note ---
Date of Service: June 19, 2024 24hour interval CTH is stable. Patient remains on AWSS protocol. He is stable for transfer out of ICU. Primary team was contacted and agreeable to transfer. W e will sign off, please reach out with any additional questions or concerns. Coding Level of Care Code None
--- NOTE | 2024-06-20 00:52 | Magnetic Resonance Report ---
Exam(s): MRI HEAD Without Contrast EXAM: MR Head Without Intravenous Contrast CLINICAL HISTORY: Reason for exam: carrillo, aphasia, involuntary mvmnt. TECHNIQUE: Magnetic resonance images of the head/brain without intravenous contrast in multiple planes. COMPARISON: Prior head CT from June 19, 2024. FINDINGS: This study is limited secondary to motion artifact. Brain: Unremarkable. No mass. No hemorrhage. No acute infarct. The flow voids at the base the brain are intact. Ventricles: Unremarkable. No ventriculomegaly. Bones/joints: Unremarkable. No acute fracture. Sinuses: Unremarkable as visualized. No acute sinusitis. Mastoid air cells: Unremarkable as visualized. No mastoid effusion. Orbits: Unremarkable as visualized. IMPRESSION: No evidence of acute intracranial pathology in this limited study. Electronically signed by: Stacy William MD 06/20/24 00:51 AM
[2024-06-20 05:25] LABS: BUN Creatinine Ratio 11.8 (10-20); Calcium 9.4 mg/dl (8.6-10.3); Creatinine Clr Calc Pharmacy 96.7 ml/min; Phosphorus 2.4 mg/dl (2.5-4.9); Potassium 4.5 mmol/L (3.5-5.1)
[2024-06-20] MEDS: FOLIC ACID 1 MG in SYRINGE 9.8 ML IV SCH (08:21)
[2024-06-20] MEDS: ENOXAPARIN INJ 30 MG/0.3 ML SYR SQ SCH (08:21)
[2024-06-20] MEDS ORDERED: SODIUM PHOSPHATE 3 MMOL/1 ML INFUSION IV STA (09:06)
[2024-06-20] MEDS: SODIUM PHOSPHATE 15 MMOL in SODIUM CHLORIDE 0.9% 250 ML IV ONE (10:14)
--- NOTE | 2024-06-20 12:56 | Hospitalist Progress Note ---
Date of Service June 20, 2024 Assessment & Plan (1) Alcohol withdrawal syndrome, with delirium: Plan: Acute stroke ruled out, post TNK (2) Alcohol dependence: (3) Hypertension, uncontrolled: (4) Dyslipidemia: (5) Acute heart failure with preserved ejection fraction: Plan Patient ruled out for acute stroke, patient's aphasia and delirium due to alcohol withdrawal. Continue supportive care for alcohol withdrawal, IV lorazepam based on JEFFERSON score Continue high-dose thiamine replacement Monitor electrolytes Therapies Case management Anticipate with patient's severe symptoms he will need physical rehabilitation when he is ready for discharge Phone conversation with patient's , updated to his condition. She is investigating potential rehab facilities that can do both physical and alcohol rehab. Informed her to pass that information along to our case management team as she finds out more. Admission and Anticipated Discharge Date Admission Date: June 18, 2024 Subjective Patient's head imaging overnight was negative for acute stroke, transferred out of the ICU. Patient continues to have a pretty significant amount of delirium associated with his alcohol withdrawal. Physical Exam Physical Exam: Constitutional: Delirious, will open his eyes when you call his name HEENT: Mucous membranes slightly dry Lungs: Clear to auscultation, decreased, no wheezes rales or rhonchi CV: S1-S2, regular Abdomen: Soft, nontender, nondistended Extremities: No significant edema, hand mitts in place Neuro: Drowsy, somnolent, generalized weakness Psych: Irritable at times Results & Data Results & Data Vital Signs (Past 12 Hours) Vital Signs Temp Pulse Pulse Resp BP BP Pulse Ox 06/20/24 11:19 36.6 C 82 18 140/79 95 06/20/24 07:07 36.2 C L 75 20 114/62 93 06/20/24 06:49 65 06/20/24 02:54 36.8 C 71 23 133/73 92 O2 Del Method 06/20/24 11:19 Room Air 06/20/24 07:07 Room Air 06/20/24 06:49 06/20/24 02:54 Room Air Diagnostic Findings Reviewed imaging, laboratory and diagnostic studies. Pertinent findings as below. MRI negative for acute stroke Repeat head CT negative for bleed post TNK Electrolytes stable, phosphorus 2.4 Creatinine 0.76 Echocardiogram some mild ventricular hypertrophy, ejection fraction 55 to 60% no PFO or ASD, no evidence of pulmonary hypertension (2) Alcohol dependence Substance use status: unspecified alcohol-induced disorder Qualified Code(s): F10.29 - Alcohol dependence with unspecified alcohol-induced disorder
[2024-06-20] MEDS: LORazepam 2 MG/1 ML VIAL IM STA (20:35)
[2024-06-20] MEDS: LORazepam 2 MG/1 ML VIAL IV STA (23:38)
[2024-06-21 07:07] LABS: BUN Creatinine Ratio 15.5 (10-20); Calcium 9.1 mg/dl (8.6-10.3); Creatinine Clr Calc Pharmacy 100.1 ml/min; Phosphorus 2.8 mg/dl (2.5-4.9); Potassium 3.8 mmol/L (3.5-5.1)
--- NOTE | 2024-06-21 11:30 | Hospitalist Progress Note ---
Date of Service June 21, 2024 Assessment & Plan (1) Alcohol withdrawal syndrome, with delirium: (2) Alcohol dependence: (3) Hypertension, uncontrolled: (4) Dyslipidemia: (5) Acute heart failure with preserved ejection fraction: Plan Mr. Butler is a 68 year old gentleman with medical history significant for hyperlipidemia, alcohol abuse admitted for strokelike symptoms marked by disorientation and aphasia. Patient is s/p TNK 06/18/2024. Neurology suspected perhaps 2/2 acute alcohol withdrawal. Patient currently on Thiamine IVq8 day 03/20 #Acute metabolic encephalopathy #Acute alcohol withdrawal TSH WNL add b12 and folate Patient ruled out for acute stroke, patient's aphasia and delirium due to alcohol withdrawal. Continue supportive care for alcohol withdrawal, IV lorazepam based on AWSS score Continue high-dose thiamine replacement Monitor electrolytes Reviewed neurology notes: suspect 2/2 etoh withdrawal, no further stroke work up -TT to neuro to ensure no further work up at this time to be considered PT/OT unable to assess as he is not participating Case management following, discussion on going about physical therapy based rehab v substance based rehab Dispo TBD Admission and Anticipated Discharge Date Admission Date: June 18, 2024 Subjective Still not quite interactive, will awaken and is combative answers which hand is "left" v "right", states year is 1974, otherwise fairly incoherent in speech No clear focal deficits noted however difficult to ascertain last lorazepam at 2338 5/6 Physical Exam Constitutional: laying in bed in restraints Respiratory: normal respiratory effort, lungs clear to auscultation Cardiovascular: RRR, no murmur, no edema Neurologic: AxO1-2, follows minimal commands, no apparent cranial nerve deficits but not formally able to assess Results & Data Results & Data Vital Signs (Past 12 Hours) Vital Signs Temp Pulse Pulse Resp BP Pulse Ox O2 Del Method 06/21/24 10:20 58 L 17 133/65 95 Room Air 06/21/24 08:00 64 06/21/24 06:07 36.6 C 56 L 16 137/79 94 Room Air Laboratory Results [facility] 06/21/24 05:15 Sodium 136 Potassium 3.8 Chloride 103 Carbon Dioxide 24 BUN 11 Creatinine 0.71 Glucose 82 Calcium 9.1 Medications Administered Home Medications Medication Instructions Recorded Confirmed Last Taken cetirizine 10 mg tablet 10 mg PO DAILY PRN Itching 06/18/24 06/18/24 Unknown triamcinolone acetonide 0.1 % 1 applic topical BID PRN Rash 06/18/24 06/18/24 Unknown topical cream Active Medications Generic Name Dose Route Start Last Admin Trade Name Freq PRN Reason Stop Dose Admin Atorvastatin Calcium 40 mg 06/19/24 09:00 06/21/24 11:17 Atorvastatin 40 Mg Tab PO 07/19/24 08:59 Not Given QAM BALDEV Enoxaparin Sodium 30 mg 06/20/24 09:00 06/21/24 11:17 Enoxaparin Inj 30 Mg/0.3 Ml Syr SQ 07/20/24 08:59 Not Given QAM BALDEV Thiamine HCl 500 mg/ Sodium 55 mls @ 210 mls/hr 06/19/24 14:00 06/21/24 08:39 Chloride IV 06/22/24 06:16 Infused Q8 BALDEV Infusion Folic Acid 1 mg/ Syringe 10 mls @ 5 mls/min 06/20/24 09:00 06/21/24 08:17 IV 07/20/24 08:59 5 mls/min QAM BALDEV Administration Lorazepam 2 mg 06/18/24 21:15 06/20/24 22:05 Lorazepam 2 Mg/1 Ml Vial IV 07/18/24 21:14 2 mg UD PRN Administration EtOH Withdrawal AWSS Score 8,9 Protocol (2) Alcohol dependence Substance use status: unspecified alcohol-induced disorder Qualified Code(s): F10.29 - Alcohol dependence with unspecified alcohol-induced disorder
[2024-06-21 12:31] LABS: Folate (Folic Acid),Ser orPlas 4.57 ng/ml (>5.38)
[2024-06-21] MEDS: LORazepam 2 MG/1 ML VIAL IV PRN (22:05)
[2024-06-22 06:28] LABS: BUN Creatinine Ratio 20.9 (10-20); Calcium 9.4 mg/dl (8.6-10.3); Creatinine Clr Calc Pharmacy 81.7 ml/min; Magnesium 2.1 mg/dl (1.7-2.4); Phosphorus 3.3 mg/dl (2.5-4.9); Potassium 4.5 mmol/L (3.5-5.1)
[2024-06-22] MEDS: DEXTROSE 50% 50 ML SYRINGE IV STA (06:53)
[2024-06-22] MEDS: D5W AND NSS 1,000 ML IV SCH (06:56)
[2024-06-22] MEDS: THIAMINE HCL 100 MG in SYRINGE 9 ML IV SCH (08:42)
--- NOTE | 2024-06-22 10:23 | Hospitalist Progress Note ---
Date of Service June 22, 2024 Assessment & Plan (1) Alcohol withdrawal syndrome, with delirium: (2) Alcohol dependence: (3) Hypertension, uncontrolled: (4) Dyslipidemia: (5) Acute heart failure with preserved ejection fraction: Plan Mr. Butler is a 68 year old gentleman with medical history significant for hyperlipidemia, alcohol abuse admitted for strokelike symptoms marked by disorientation and aphasia. Patient is s/p TNK 06/18/2024. Neurology suspected perhaps 2/2 acute alcohol withdrawal. Patient completed high dose Thiamine IVq8 day 04/17 and now starting IV 100 daily for now. Patient agitated in disposition, however, appears more oriented than day prior--noting location, year and partial understanding of circumstances around his admission. #Acute metabolic encephalopathy #Acute alcohol withdrawal TSH WNL b12 114, start po replacement and folate low at 4 continue IV replacement with po upon discharge to be recommended Patient ruled out for acute stroke, patient's aphasia and delirium due to alcohol withdrawal. Continue supportive care for alcohol withdrawal, IV lorazepam based on AWSS score Continue high-dose thiamine replacement Monitor electrolytes Reviewed neurology notes: suspect 2/2 etoh withdrawal, no further stroke work up Neuro does not recommend further eval at this time PT/OT unable to assess as he is not participating #hypoglycemia encouraged po intake with plans to d/c IVF Case management following, discussion on going about physical therapy based rehab v substance based rehab Dispo TBD 1-2 days Admission and Anticipated Discharge Date Admission Date: June 18, 2024 Subjective More awake today, following commands quite irritable as to be anticipated with current circumstances, but able to hol d conversation Denies any new symptoms at this time encouraged ambulation today and po intake Physical Exam Constitutional: WD/WN, vitals as above Respiratory: normal respiratory effort, lungs clear to auscultation Cardiovascular: RRR, no murmur, no edema Neurologic: PERRL, EOMI, accommodation nl, no face palsy, no dysarthria Results & Data Results & Data Vital Signs (Past 12 Hours) Vital Signs Temp Pulse Resp BP Pulse Ox O2 Del Method 06/22/24 07:40 36.5 C 70 18 126/72 99 Room Air 06/21/24 23:02 36.6 C 77 17 132/72 90 Room Air Laboratory Results [facility] 06/22/24 05:25 Sodium 136 Potassium 4.5 Chloride 101 Carbon Dioxide 25 BUN 18 Creatinine 0.86 Glucose 63 L Calcium 9.4 Medications Administered Home Medications Medication Instructions Recorded Confirmed Last Taken cetirizine 10 mg tablet 10 mg PO DAILY PRN Itching 06/18/24 06/18/24 Unknown triamcinolone acetonide 0.1 % 1 applic topical BID PRN Rash 06/18/24 06/18/24 Unknown topical cream Active Medications Generic Name Dose Route Start Last Admin Trade Name Freq PRN Reason Stop Dose Admin Atorvastatin Calcium 40 mg 06/19/24 09:00 06/22/24 08:41 Atorvastatin 40 Mg Tab PO 07/19/24 08:59 40 mg QAM BALDEV Administration Enoxaparin Sodium 30 mg 06/20/24 09:00 06/22/24 08:41 Enoxaparin Inj 30 Mg/0.3 Ml Syr SQ 07/20/24 08:59 30 mg QAM BALDEV Administration Thiamine HCl 100 mg/ Syringe 10 mls @ 2 mls/min 06/22/24 09:00 06/22/24 08:42 IV 07/22/24 08:59 2 mls/min DAILY BALDEV Administration Folic Acid 1 mg/ Syringe 10 mls @ 5 mls/min 06/20/24 09:00 06/22/24 08:42 IV 07/20/24 08:59 5 mls/min QAM BALDEV Administration Dextrose/Sodium Chloride 1,000 mls @ 100 mls/hr 06/22/24 06:45 06/22/24 06:56 D5w And Nss IV 06/25/24 06:44 100 mls/hr .Q10H BALDEV Administration Lorazepam 1 mg 06/18/24 21:15 06/21/24 22:05 Lorazepam 2 Mg/1 Ml Vial IV 07/18/24 21:14 1 mg UD PRN Administration EtOH Withdrawal AWSS Score 6,7 Protocol Lorazepam 2 mg 06/18/24 21:15 06/20/24 22:05 Lorazepam 2 Mg/1 Ml Vial IV 07/18/24 21:14 2 mg UD PRN Administration EtOH Withdrawal AWSS Score 8,9 Protocol (2) Alcohol dependence Substance use status: unspecified alcohol-induced disorder Qualified Code(s): F10.29 - Alcohol dependence with unspecified alcohol-induced disorder
[2024-06-22] MEDS: CYANOCOBALAMIN (B-12) 500 MCG TABLET PO SCH (13:01)
[2024-06-22] MEDS: diphenhydrAMINE Capsule 25 MG CAP PO ONE (15:50)
[2024-06-22] MEDS ORDERED: CETIRIZINE HCL 10 MG TABLET PO PRN (17:54)
[2024-06-23 08:09] LABS: BUN Creatinine Ratio 21.2 (10-20); Calcium 9.3 mg/dl (8.6-10.3); Phosphorus 3.1 mg/dl (2.5-4.9); Potassium 4.5 mmol/L (3.5-5.1)
[2024-06-23 08:36] VITALS: RESP 18; TEMP 97.9; O2SAT 93
[2024-06-23] MEDS ORDERED: STROKE PATIENT DISCHARGE STA (10:22)
--- NOTE | 2024-06-23 10:26 | Discharge Summary ---
Discharge Summary Date of Service June 23, 2024 Principal Dx & Hospital Course #1 = Principal Diagnosis (1) Alcohol withdrawal syndrome, with delirium: (2) Alcohol dependence: (3) Hypertension, uncontrolled: (4) Dyslipidemia: (5) Acute heart failure with preserved ejection fraction: Plan Mr. Butler is a 68 year old gentleman with medical history significant for hyperlipidemia, alcohol abuse admitted for strokelike symptoms marked by disorientation and aphasia. Patient is s/p TNK 06/18/2024. Neurology suspected perhaps 2/2 acute alcohol withdrawal. Patient completed high dose Thiamine IVq8 day 04/17 and now started IV 100 daily. Patient agitated in disposition, however, appears more oriented than day prior--noting location, year and partial understanding of circumstances around his admission. On day of discharge, patient was agreeable to physical rehab. He denies any acute concerns and looking towards substance based rehabs in the future as well. #Acute metabolic encephalopathy #Acute alcohol withdrawal TSH WNL b12 114, continue po replacement folate low at 4 start po replacement on discharge Patient ruled out for acute stroke, patient's aphasia and delirium due to alcohol withdrawal. Continue supportive care for alcohol withdrawal, IV lorazepam based on AWSS score Continue high-dose thiamine replacement Monitor electrolytes Reviewed neurology notes: suspect 2/2 etoh withdrawal, no further stroke work up Neuro does not recommend further eval at this time plan for inpatient rehab #HLD started statin #hypoglycemia resolved Notes For Next Care Provider Medication Changes From Visit Thiamine 100mg daily Folic acid 1mg daily B12 1000mcg daily Atorvastatin 40mg daily Admission HPI Per Admitting Provider History obtained from patient's family and records. Unable to obtain history from patient secondary to disorientation/aphasia Medical history significant for hyperlipidemia, alcohol abuse. Patient had sudden onset aphasia this afternoon. Preceded by achy headache symptoms. Patient suddenly started shaking. No prior episodes. Patient seemed okay when he helped with her bags after returned home from an out-of-town conference today as per family account. SBP 190s upon arrival at the ER. Stroke alert called upon arrival at the ER. Patient received TNK following [facility] stroke specialist recommendations. IV nicardipine infusion initiated at the ER. 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 Admission Exam Per Admitting Provider GENERAL: Aphasic, tremulous, no respiratory distress SKIN: Normal color, warm HEENT: [place] palpebral conjunctivae, no ptosis, dry buccal mucosa NECK : Supple, no tenderness CHEST : CTA, no tenderness HEART : RRR, no obvious murmurs ABDOMEN: Some distention, nontender EXTREMITIES : No LE swelling/tenderness, palpable pulses, no other conspicuous deformities noted NEUROLOGIC : Aphasic, no facial asymmetry, tremulous, gait and stance not assessed Discharge Exam Constitutional WD/WN, vitals as above Respiratory normal respiratory effort, lungs clear to auscultation Cardiovascular RRR, no murmur, no edema Neurologic PERRL, EOMI, accommodation nl, no face palsy, no dysarthria Updated Medication List Medication Instructions Recorded Confirmed Type cetirizine 10 mg tablet 10 mg PO DAILY PRN Itching 06/18/24 06/18/24 History triamcinolone acetonide 0.1 % 1 applic topical BID PRN Rash 06/18/24 06/18/24 History topical cream atorvastatin 40 mg tablet 40 mg PO QAM 30 days #0 tabs 06/23/24 Rx cyanocobalamin (vitamin B-12) 500 1,000 mcg (2 x 500 mcg) PO QAM 60 06/23/24 Rx mcg tablet days #0 tabs folic acid 1 mg tablet 1 mg PO DAILY #30 tabs 06/23/24 Rx thiamine HCl (vitamin B1) 100 mg 100 mg PO DAILY #30 tabs 06/23/24 Rx tablet Hospital Stay Data Consultations 06/18/24 20:38 ED Decision to Admit Stat 06/18/24 21:17 Consult Neurology Routine 06/18/24 22:14 Consult Consumer Affairs Manager Routine Diagnostic Imagining Performed 06/18/24 18:17 CT head/brain wo con Stat 06/18/24 18:26 CT angio head w con Stat CT angio neck with con Stat 06/19/24 00:30 MR brain wo con Routine 06/19/24 19:50 CT head/brain wo con Routine Pending Results Patient Have Any Pending Studies at Discharge: No Discharge Instructions Given to Patient (Per Discharging Provider) You were admitted for rapid onset altered mental status initially concerning for stroke. You received TNK (clot buster) and thought to be in alcohol withdrawal contributing to your confusion and agitation. You received high dose thiamine and over time your mental status improved. It is recommended you start the following: Thiamine 100mg daily Folic acid 1mg daily B12 1000mcg daily Atorvastatin 40mg daily Total Time Total Time Spent Total Time Spent (In Minutes): 45
[2024-06-23 11:30] VITALS: BP 139/76; PULSE 66
== END 2024-06-23 14:45 | DRG 896 ==
LOC: ED 18:06 → 1E 20:50 → SUATTDRO 20:50 → 1E 21:49 → 2E 06-20 19:48 → 3N 06-22 17:52